=== PATIENT | male | born 1960 | race African-American/Black ===

== ENCOUNTER 2017-06-11 15:47 | Emergency (ER) | payer OTHER ==
[~2017-06-11 15:47] MED LIST: 1-ME1LIQ PO; BENZ100 PO; EXTR500C PO; GLUCTAB PO; LISI2.5T3 PO; NAPR250T57 PO; OSEL75 PO
[2017-06-11 15:49] VITALS: BP 161/96; PULSE 75; RESP 16; TEMP 98.2; O2SAT 97
[2017-06-11] MEDS ORDERED: SODIUM CHLOR 0.9% 1000 ML INJ 1,000 ML IV SCH (15:57)
--- NOTE | 2017-06-11 16:05 | PD ---
HPI Chief Complaint: Diabetic Time Seen by Provider: 15:57 Travel History International Travel<30 days: No Contact w/Intl Traveler<30days: No Traveled to known affect area: No History of Present Illness HPI This is a 57-year-old male with history of type 2 diabetes, hypertension who presents for evaluation of hyperglycemia. He used to be a patient of Dr. Lee at the [facility]. He has not been there in several months and he has subsequently ran out of his metformin 500 mg bid approximate 6 months ago. He has not been checking his blood sugar. He reports that he obtain a new glucometer recently and noted that his blood sugars been elevated in the 300 range. He has been attempting dietary changes in order to affect his blood sugar but he has had persistently high blood sugar as well as polyuria, polydipsia, blurred vision. He has no other complaints at this time. 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, SPINAL STENOSIS) Neurologic: Yes (NEUROPATHY, STROKE, SEIZURE DISORDER) Psychiatric: Yes Reproductive: No Respiratory: Yes Migraines: No Myocardial Infarction: No Radiation Therapy: No Renal Failure: No Seizures: Yes Sickle Cell Disease: No Sleep Apnea: Yes ("I WEAR OXYGEN MACHINE AT NIGHT FOR SLEEP APNEA") Thyroid Disease: No Ulcer: No Past Surgical History AICD: No Appendectomy: No Arteriovenous Shunt: No Cholecystectomy: No Insulin Pump: No Joint Replacement: No Pacemaker: No Other Surgery: No Social History Alcohol Use: Yes (OCC) Tobacco Use: No (quit x1 month) Substance Use: No (PATIENT DENIES) Allergies-Medications (Allergen,Severity, Reaction): Coded Allergies: lactose (Unverified Allergy, Severe, LACTOSE INTOLERANT, 06/11/17) Reported Meds & Prescriptions Reported Meds & Active Scripts Active Metformin (Metformin HCl) 500 Mg Tab 500 Mg PO BIDPC Tessalon Perles (Benzonatate) 100 Mg Cap 100 Mg PO TID PRN Tamiflu 75 mg (Oseltamivir Phosphate) 75 Mg Cap 1 Cap PO BID 5 Days Lisinopril 2.5 mg (Lisinopril) 2.5 Mg Tab 1 Tab PO DAILY 1-Methyl 2-Pyrrolidinone (1-Methyl 2-Pyrrolidone (Bulk)) 10 Mg Tab 1 Tab PO DAILY Glucophage XR 24 HR (Metformin HCl) 500 Mg Tab 500 Mg PO BID Reported Extra Strength Acetaminop (Acetaminophen) 500 Mg Cap 500 Mg PO BID PRN Naprosyn (Naproxen) 250 Mg Tab 250 Mg PO BID Review of Systems Except as stated in HPI: all other systems reviewed are Neg Physical Exam Narrative GENERAL: Well-developed well-nourished male in no acute distress SKIN: Warm and dry. HEAD: Atraumatic. Normocephalic. EYES: Pupils equal and round. No scleral icterus. No injection or drainage. ENT: No nasal bleeding or discharge. Mucous membranes pink and moist. NECK: Trachea midline. No JVD. CARDIOVASCULAR: Regular rate and rhythm. No murmur appreciated. RESPIRATORY: No accessory muscle use. Clear to auscultation. Breath sounds equal bilaterally. GASTROINTESTINAL: Abdomen soft, non-tender, nondistended. Hepatic and splenic margins not palpable. MUSCULOSKELETAL: No obvious deformities. No clubbing. No cyanosis. No edema. NEUROLOGICAL: Awake and alert. No obvious cranial nerve deficits. Motor grossly within normal limits. Normal speech. PSYCHIATRIC: Appropriate mood and affect; insight and judgment normal. Data Data Last Documented VS Vital Signs Date Time Temp Pulse Resp B/P (MAP) Pulse Ox O2 Delivery O2 Flow Rate FiO2 06/11/17 16:23 Room Air 06/11/17 15:49 98.2 75 16 161/96 (117) 97 Orders Orders Basic Metabolic Panel (Bmp) (06/11/17 15:57) Complete Blood Count With Diff (06/11/17 15:57) Urinalysis - C+S If Indicated (06/11/17 15:57) Iv Access Insert/Monitor (06/11/17 15:57) Sodium Chlor 0.9% 1000 Ml Inj (Ns 1000 M (06/11/17 15:57) Beta Hydroxybutyrate (Acetone) (06/11/17 15:57) Blood Glucose (06/11/17 16:05) Metformin (Glucophage) (06/11/17 17:15) Labs Laboratory Tests Test 06/11/17 16:20 White Blood Count 6.0 TH/MM3 Red Blood Count 5.20 MIL/MM3 Hemoglobin 14.3 GM/DL Hematocrit 42.8 % Mean Corpuscular Volume 82.4 FL Mean Corpuscular Hemoglobin 27.6 PG Mean Corpuscular Hemoglobin Concent 33.5 % Red Cell Distribution Width 13.3 % Platelet Count 204 TH/MM3 Mean Platelet Volume 8.4 FL Neutrophils (%) (Auto) 64.8 % Lymphocytes (%) (Auto) 23.6 % Monocytes (%) (Auto) 8.5 % Eosinophils (%) (Auto) 2.3 % Basophils (%) (Auto) 0.8 % Neutrophils # (Auto) 3.9 TH/MM3 Lymphocytes # (Auto) 1.4 TH/MM3 Monocytes # (Auto) 0.5 TH/MM3 Eosinophils # (Auto) 0.1 TH/MM3 Basophils # (Auto) 0.0 TH/MM3 CBC Comment DIFF FINAL Differential Comment Urine Color YELLOW Urine Turbidity CLEAR Urine pH 6.0 Urine Specific [place] 1.023 Urine Protein TRACE mg/dL Urine Glucose (UA) 1000 mg/dL Urine Ketones TRACE mg/dL Urine Occult Blood NEG Urine Nitrite NEG Urine Bilirubin NEG Urine Urobilinogen 2.0 MG/DL Urine Leukocyte Esterase NEG Urine WBC LESS THAN 1 /hpf Urine Mucus FEW /lpf Microscopic Urinalysis Comment CULT NOT INDICATED Blood Urea Nitrogen 13 MG/DL Creatinine 1.26 MG/DL Random Glucose 267 MG/DL Calcium Level 9.5 MG/DL Sodium Level 134 MEQ/L Potassium Level 3.8 MEQ/L Chloride Level 99 MEQ/L Carbon Dioxide Level 27.5 MEQ/L Anion Gap 8 MEQ/L Estimat Glomerular Filtration Rate 71 ML/MIN B-Hydroxybutyrate 0.15 MMOL/L MDM Medical Decision Making Medical Screen Exam Complete: Yes Emergency Medical Condition: Yes Medical Record Reviewed: Yes Differential Diagnosis Diabetes, hyperglycemia, DKA Narrative Course Laboratory is reassuring. Glucose is 267. He will be restarted on his metformin. Encouraged to establish care with a new primary care physician. Diagnosis Primary Impression: Diabetes Referrals: [facility] Additional Instructions: Medications prescribed. Follow-up with primary care physician. Return for any emergent medical conditions. Med/Other Pt SpecificInfo: Prescription(s) given Scripts Metformin (Metformin) 500 Mg Tab 500 MG PO BIDPC for Blood Sugar Management, #60 TAB 0 Refills Prov: Marichuy Buchanan MD 06/11/17 Disposition: 01 DISCHARGE HOME Condition: Stable Vijay Jasmine Jun 11, 2017 16:05
[2017-06-11 16:45] LABS: AUTOMATED NEUTROPHIL # 3.9 TH/MM3 (1.8-7.7); BASOPHIL % 0.8 % (0.0-2.0); EOSINOPHIL # 0.1 TH/MM3 (0-0.4); EOSINOPHIL % 2.3 % (0.0-4.0); HEMATOCRIT 42.8 % (39.0-51.0); HEMOGLOBIN 14.3 GM/DL (13.0-17.0); LYMPH % 23.6 % (9.0-44.0); LYMPHOCYTE # 1.4 TH/MM3 (1.0-4.8); MEAN CELL VOLUME 82.4 FL (80.0-100.0); MEAN CORPUSCULAR HEMOGLOBIN 27.6 PG (27.0-34.0); MEAN CORPUSCULAR HGB CONC 33.5 % (32.0-36.0); MEAN PLATELET VOLUME 8.4 FL (7.0-11.0); MONO % 8.5 % (0.0-8.0); MONOCYTE # 0.5 TH/MM3 (0-0.9); NEUT % 64.8 % (16.0-70.0); PLATELET COUNT 204 TH/MM3 (150-450); RED CELL DISTRIBUTION WIDTH 13.3 % (11.6-17.2)
[2017-06-11 16:52] LABS: BILIRUBIN, URINE NEG (NEG); BLOOD, URINE NEG (NEG); GLUCOSE,URINE 1000 mg/dL (NEG); KETONE, URINE TRACE mg/dL (NEG); MUCUS URINE FEW /lpf (OCC); NITRITE,URINE NEG (NEG); URINE COLOR YELLOW (YELLW/STRAW); URINE LEUKOCYTE ESTERASE NEG (NEG)
[2017-06-11 17:01] LABS: BICARBONATE 27.5 MEQ/L (21.0-32.0); CALCIUM 9.5 MG/DL (8.5-10.1); CREATININE 1.26 MG/DL (0.60-1.30)
[2017-06-11] MEDS ORDERED: METF500T PO (17:06)
[2017-06-11] MEDS ORDERED: metFORMIN HCL 500 MG TAB PO ONE (17:15)
== END 2017-06-11 18:02 | disposition home or self-care (01) ==
LOC: NEPE 15:47
DX: E11.65 Type 2 diabetes mellitus with hyperglycemia (principal); I10 Essential (primary) hypertension; F32.9 Major depressive disorder, single episode, unspecified; E78.00 Pure hypercholesterolemia, unspecified; J44.9 Chronic obstructive pulmonary disease, unspecified; E11.40 Type 2 diabetes mellitus with diabetic neuropathy, unspecified; G40.909 Epilepsy, unspecified, not intractable, without status epilepticus; G47.30 Sleep apnea, unspecified; Z86.73 Personal history of transient ischemic attack (TIA), and cerebral infarction without residual deficits
CPT/HCPCS: 80048; 81001; 82010; 85025; 99284; J7030

== ENCOUNTER 2018-02-02 08:04 | Observation (INO) ==
[2018-02-02] MEDS ORDERED: Sod Chloride 0.9% Inj 1,000 ML IV.SIG ONE (08:44)
[2018-02-02 09:16] LABS: Baso # (Auto) 0.1 th/mm3 (0.0-0.2); Baso % (Auto) 0.8 % (0.0-2.0); Eos # (Auto) 0.1 th/mm3 (0.0-0.4); Eos % (Auto) 0.8 % (0.0-4.0); Hematocrit 44.6 % (39.0-51.0); Hemoglobin 14.6 gm/dL (13.0-17.0); Lymph # (Auto) 1.3 th/mm3 (1.0-4.8); Lymph % (Auto) 18.3 % (9.0-44.0); Mean Corpuscular HGB Conc 32.7 % (32.0-36.0); Mean Corpuscular Hemoglobin 27.6 pg (27.0-34.0); Mean Corpuscular Volume 84.3 fL (80.0-100.0); Mean Platelet Volume 8.8 fL (7.0-11.0); Mono # (Auto) 0.6 th/mm3 (0.0-0.9); Mono % (Auto) 8.3 % (0.0-8.0); Neut # (Auto) 5.1 th/mm3 (1.8-7.7); Neut % (Auto) 71.8 % (16.0-70.0); Platelet Count 200 th/mm3 (150-450); Red Blood Count 5.29 mil/mm3 (4.50-5.90); Red Cell Distribution Width 13.9 % (11.6-17.2); White Blood Count 7.1 th/mm3 (4.0-11.0)
--- NOTE | 2018-02-02 09:22 | CT ---
EXAM DATE: 02/02/2018 9:17 AM EDT AGE/SEX: 57 years / Male INDICATIONS: Dizziness. CLINICAL DATA: This is the patient's initial encounter. Patient reports that signs and symptoms have been present for 1 day and indicates a pain score of 0/10. MEDICAL/SURGICAL HISTORY: Hypertension. None. RADIATION DOSE: 37.50 CTDI (mGy) COMPARISON: [facility], CT BRAIN W/O CONTRAST, 01/21/2011. . TECHNIQUE: CT of the head without contrast. Using automated exposure control and adjustment of the mA and/or kV according to patient size, radiation dose was kept as low as reasonably achievable to ob tain optimal diagnostic quality images. DICOM format image data is available electronically for revi ew and comparison. FINDINGS: Cerebrum: The ventricles are normal for age. No evidence of midline shift, mass lesion, hemorrhage or acute infarction. No extraaxial fluid collections are seen. Posterior Fossa: The cerebellum and brainstem are intact. The 4th ventricle is midline. The cerebe llopontine angle is unremarkable. Extracranial: The visualized portion of the orbits is intact. Skull: The calvaria is intact. No evidence of skull fracture. CONCLUSION: 1. Unremarkable and stable CT brain compared to the prior examination. . Electronically signed by: Albin Patino MD 02/02/2018 9:21 AM EDT
--- NOTE | 2018-02-02 09:23 | XR ---
EXAM DATE: 02/02/2018 9:09 AM EDT AGE/SEX: 57 years / Male INDICATIONS: Chest discomfort. CLINICAL DATA: This is the patient's initial encounter. Patient reports that signs and symptoms have been present for 1 day and indicates a pain score of 1/10. MEDICAL/SURGICAL HISTORY: None. None. [place] [facility] [place]. . FINDINGS: A single AP view of the chest demonstrates the lungs to be symmetrically aerated without evidence of mass, infiltrate or effusion. The cardiomediastinal contours are unremarkable. Osseous structures a re intact. CONCLUSION: No acute intrathoracic disease. Stable examination. Electronically signed by: Albin Patino MD 02/02/2018 9:22 AM EDT
--- NOTE | 2018-02-02 09:23 | XR ---
EXAM DATE: 02/02/2018 9:10 AM EDT AGE/SEX: 57 years / Male INDICATIONS: Low back pain. CLINICAL DATA: This is the patient's initial encounter. Patient reports that signs and symptoms have been present for 2 weeks and indicates a pain score of 8/10. MEDICAL/SURGICAL HISTORY: None. None. COMPARISON: No prior exams available for comparison. FINDINGS: The vertebral bodies are in normal alignment without evidence of compression deformity. Bone density is normal for age. Soft tissues are grossly intact. There is good alignment of the SI joints. CONCLUSION: Unremarkable plain films of the lumbar spine. Electronically signed by: Albin Patino MD 02/02/2018 9:21 AM EDT
[2018-02-02 10:28] LABS: Calcium 8.5 mg/dL (8.5-10.1); Potassium 4.1 meq/L (3.5-5.1)
--- NOTE | 2018-02-02 12:15 | ED ---
HPI General Chief Complaint: Dizziness Stated Complaint: High BP/weakness Time Seen by Provider: 02/02/18 08:44 History of Present Illness HPI Narrative: This is a 57-year-old male with a history of diabetes mellitus, hypertension, chronic back pain, who presents today with complaints of dizziness and left upper and lower extremity numbness. Patient denies any weakness. He states yesterday he started experiencing spasms in his hand. He states that when he woke up this morning he noticed that he was also having numbness of his leg and arm and face. He states that he has had this in the past however it has never lasted this long. He denies any weakness of his extremities. He denies any difficulty swallowing. He denies any numbness or tingling of his right upper or lower extremity. Patient does state that he has had neuropathy in the past when his blood sugars have been high. Patient also gives history that he recently had a steroid injection for his low back pain. Patient reports dizziness. He states worse when standing however he does have some when he sitting supine. No other complaints at time of examination. Related Data Allergies Allergy/AdvReac Type Severity Reaction Status Date / Time lactose Allergy Severe LACTOSE Unverified 06/11/17 16:32 INTOLERANT Review of Systems ROS: all other systems reviewed are negative Constitutional Denies chills and Denies fever(s) Eyes Reports system reviewed and no additional complaints, except as docu ENT Reports system reviewed and no additional complaints, except as docu Cardiovascular Denies chest pain, Denies diaphoresis, Denies edema and Denies dyspnea Respiratory Denies chest congestion, Denies cough and Denies dyspnea Gastrointestinal Denies abdominal pain, Denies nausea and Denies vomiting Genitourinary Reports system reviewed and no additional complaints, except as docu Musculoskeletal Reports back pain (Lumbar), Reports numbness (Left upper and left lower extremity) and Reports tingling Integumentary/Breasts Denies new lesions and Denies rash Neurologic Denies abnormal speech, Denies vertigo, Reports dizziness, Reports sensory deficit (Left sided face and left upper and left lower extremity numbness.) and Denies weakness Endocrine Denies polydipsia and Reports polyuria [facility] Social History Social History Second Hand Smoke Exposure: No Smoking Status: Former smoker Tobacco Type: Cigarettes How Often Do You Have a Drink Containing Alcohol: Never Recent Travel in [facility] within the Last 8 Weeks: No Recent Out of Country Travel within the Last 8 Weeks: No Immunization History Tetanus Immunization: <5 Years Exam Narrative Exam Narrative: GENERAL: Well-developed well-nourished male in no acute respiratory distress. SKIN: Focused skin assessment warm/dry. HEAD: Atraumatic. Normocephalic. EYES: No scleral icterus. No injection or drainage. ENT: No nasal bleeding or discharge. Mucous membranes pink and moist. NECK: Trachea midline. Supple. CARDIOVASCULAR: Regular rate and rhythm. No murmur appreciated. RESPIRATORY: No accessory muscle use. Clear to auscultation. Breath sounds equal bilaterally. GASTROINTESTINAL: Abdomen soft, non-tender, nondistended. Hepatic and splenic margins not palpable. MUSCULOSKELETAL: No obvious deformities. No clubbing. No cyanosis. No edema. NEUROLOGICAL: Awake and alert. Subjective decreased sensation to the left upper middle and lower face. Patient also reports decreased sensation to the left upper extremity and left lower extremity compared to the right. Normal sensation to the right upper and right lower extremity and face.. Motor grossly within normal limits. Normal speech. PSYCHIATRIC: Appropriate mood and affect; insight and judgment normal. Course Initial Documented Vital Signs Temperature 97.6 F 02/02/18 08:09 Pulse Rate 80 02/02/18 08:09 Respiratory Rate 16 02/02/18 08:09 Blood Pressure 130/75 02/02/18 08:09 Pulse Oximetry 99 02/02/18 08:09 Last Documented Vital Signs Temperature 97.6 F 02/02/18 08:09 Pulse Rate 72 02/02/18 11:40 Respiratory Rate 17 02/02/18 11:40 Blood Pressure 121/79 02/02/18 11:40 Pulse Oximetry 96 02/02/18 11:40 Medical Decision Making [facility] Narrative Medical decision making narrative: 57-year-old male with a history of diabetes mellitus, hypertension, presents today with complaints of numbness to the left face, left upper extremity, left lower extremity. Patient also reports dizziness. The patient states his blood pressure was high this morning when he woke up in the middle of the night. He states that when he checked it it was 100 diastolic. He states he called his primary care physician who instructed him to take his blood pressure medication. He states he took 2 of his lisinopril and 1 amlodipine. When he arrived here today, his blood pressure had normalized. The patient has subjective decreased sensation to his left side including his face. CT scan shows no evidence of acute intracranial abnormalities. Blood work reveals elevated blood sugar over 200. He is still symptomatic. There is a call out to the [facility] for possible observation admission and MRI. Patient's lumbar spine films show no evidence of abnormality. Medical Screen Exam Complete: Yes Emergency Medical Condition: Yes Lab Data Result diagrams: 02/02/18 08:00 02/02/18 08:00 Lab Results 02/02/18 02/02/18 02/02/18 Range/Units 08:00 08:00 12:30 WBC 7.1 (4.0-11.0) th/mm3 RBC 5.29 (4.50-5.90) mil/mm3 Hgb 14.6 (13.0-17.0) gm/dL Hct 44.6 (39.0-51.0) % MCV 84.3 (80.0-100.0) fL MCH 27.6 (27.0-34.0) pg MCHC 32.7 (32.0-36.0) % RDW 13.9 (11.6-17.2) % Plt Count 200 (150-450) th/mm3 MPV 8.8 (7.0-11.0) fL Neut % (Auto) 71.8 H (16.0-70.0) % Lymph % (Auto) 18.3 (9.0-44.0) % [place]k % (Auto) 8.3 H (0.0-8.0) % Eos % (Auto) 0.8 (0.0-4.0) % Baso % (Auto) 0.8 (0.0-2.0) % Neut # (Auto) 5.1 (1.8-7.7) th/mm3 Lymph # (Auto) 1.3 (1.0-4.8) th/mm3 [place]k # (Auto) 0.6 (0.0-0.9) th/mm3 Eos # (Auto) 0.1 (0.0-0.4) th/mm3 Baso # (Auto) 0.1 (0.0-0.2) th/mm3 WBC Differential . Differential Comment Auto diff final Sodium 138 (136-145) meq/L Potassium 4.1 (3.5-5.1) meq/L Chloride 102 (98-107) meq/L Carbon Dioxide 28.0 (21.0-32.0) meq/L Anion Gap 8 (5-15) meq/L BUN 17 (7-18) mg/dL Creatinine 1.10 (0.60-1.30) mg/dL Estimated GFR 84 L (>89) mL/min Random Glucose 240 H (74-106) mg/dL Calcium 8.5 (8.5-10.1) mg/dL Urine Color Yellow (Yellw/Straw) Urine Clarity Clear (Clear) Urine pH 5.0 (5.0-8.5) Ur Specific [place] 1.025 (1.002-1.035) Urine Protein 100 H (Neg-Trace) mg/dL Urine Glucose (UA) 500 or greater (Negative) mg/dL Urine Ketones Negative (Negative) mg/dL Urine Occult Blood Negative (Negative) Urine Nitrate Negative (Negative) Urine Bilirubin Negative (Negative) Urine Urobilinogen Less than 2 (Less than 2) mg/dL Ur Leukocyte Esterase Negative (Negative) Urine RBC 1 (0-3) /hpf Urine WBC Less than 1 (0-5) /hpf Urine Bacteria Rare H (None) /hpf Micro UA Comment Culture not ind Ur Microscopic Review Not Reportable Urine Culture Comments Culture not ind Imaging Data Radiologist's impression: Chest X-Ray 02/02/18 08:44 CONCLUSION: No acute intrathoracic disease. Stable examination. Head CT 02/02/18 08:44 CONCLUSION: 1. Unremarkable and stable CT brain compared to the prior examination. . Lumbar Spine X-Ray 02/02/18 08:44 CONCLUSION: Unremarkable plain films of the lumbar spine. Discharge Plan Discharge Disposition Patient Disposition: 30 Still Patient Discharge Details Diagnosis: Left sided numbness, Hyperglycemia, Hypertension Physicians Team ED Provider: Mikael Presley Primary Care Provider: No Carey Discharge Interventions Interventions: Vital Signs Last Done: 02/02/18 11:40 Status ED Status: With Doctor
[2018-02-02 13:52] LABS: Bacteria,Urine Rare /hpf; Bilirubin,Urine Negative (Negative); Clarity,Urine Clear (Clear); Color,Urine Yellow (Yellw/Straw); Glucose,Urine (UA) 500 or Greater mg/dL (Negative); Leukocyte Esterase,Urine Negative (Negative); Nitrite,Urine Negative (Negative); Specific Gravity,Urine 1.025 (1.002-1.035)
--- NOTE | 2018-02-02 15:57 | US ---
EXAM DATE: 02/02/2018 3:53 PM EDT AGE/SEX: 57 years / Male INDICATIONS: Transient ischemic attack. CLINICAL DATA: This is the patient's initial encounter. Patient reports that signs and symptoms have been present for 1 day and indicates a pain score of 0/10. MEDICAL/SURGICAL HISTORY: . Transient ischemic attack. None. COMPARISON: No prior exams available for comparison. VELOCITY PARAMETERS: ICA/CCA Ratio: Right 0.8 , Left 0.8 ICA: Right 85.7 cm/sec, Left 86.6 cm/sec CCA: Right 108 cm/sec, Left 108 cm/sec ECA: Right 98.8 cm/sec, Left 96.8 cm/sec Vertebral: Right 54.1 cm/sec antegrade, Left 34.8 cm/sec antegrade FINDINGS: Right Carotid: There is some mild plaquing at the bifurcation.The waveforms are within normal limits . Left Carotid: There is some mild plaquing at the bifurcation. The waveforms are within normal limits . Other: None. CONCLUSION: 1. Mild plaquing at both carotid bifurcations. 2. Otherwise, unremarkable carotid ultrasound for patient's age. No focal high-grade or hemodynamica lly significant stenosis is demonstrated. Electronically signed by: Albin Patino MD 02/02/2018 3:56 PM EDT
--- NOTE | 2018-02-02 16:26 | ECG ---
Date Performed: 02/02/2018 Time Performed: 08:24:37 PTAGE: 57 years EKG: Sinus rhythm NORMAL ECG Since the PREVIOUS TRACING , no significant change noted PREVIOUS TRACIN08/10/2014 05.25 DOCTOR: Nader Carey Interpretating Date/Time 02/02/2018 16:26:02
[2018-02-02] MEDS: Heparin - SQ 10,000 UNITS/ML Vial SQ SCH (16:58)
[2018-02-02] MEDS: Aspirin 325 MG Tablet PO SCH (16:58)
--- NOTE | 2018-02-02 17:58 | MR ---
EXAM DATE: 02/02/2018 5:51 PM EDT AGE/SEX: 57 years / Male INDICATIONS: CVA. Left sided weakness. CLINICAL DATA: This is the patient's initial encounter. Patient reports that signs and symptoms have been present for 1 day and indicates a pain score of 0/10. MEDICAL/SURGICAL HISTORY: Hypertension. Diabetes mellitus type II. None. COMPARISON: No prior exams available for comparison. TECHNIQUE: 3D [id number] MRA was performed. Source images, multiplanar STS MIP, and 3D volum e MIP reconstructions were reviewed. FINDINGS: There is excellent visualization of the major intracranial arteries out to the second-order branch ve ssels. There is no evidence for aneurysm, vessel stenosis, and no evidence for vascular malformation . There is some questionable mild narrowing involving the basilar artery. The posterior cerebral vess els are patent. There are patent bilateral posterior communicating arteries. CONCLUSION: 1. Questionable mild narrowing involving the basilar artery. This may be an artifact. If clinically indicated, CTA of the carotids could be performed. 2. Otherwise, unremarkable MRA of the head. Electronically signed by: Albin Patino MD 02/02/2018 5:56 PM EDT
--- NOTE | 2018-02-02 18:05 | MR ---
EXAM DATE: 02/02/2018 5:54 PM EDT AGE/SEX: 57 years / Male INDICATIONS: CVA. Left sided weakness. CLINICAL DATA: This is the patient's initial encounter. Patient reports that signs and symptoms have been present for 1 day and indicates a pain score of 0/10. MEDICAL/SURGICAL HISTORY: Hypertension. Diabetes mellitus type II. None. COMPARISON: No prior exams available for comparison. TECHNIQUE: Multiplanar, multisequence examination of the brain was performed without contrast. FINDINGS: Cerebrum: The ventricles are normal for age. No evidence of midline shift, mass lesion, hemorrhage or acute infarction. No extraaxial fluid collections are seen. The pituitary gland and suprasellar cistern are normal in configuration. White Matter: There is moderate chronic white matter changes bilaterally. Posterior Fossa: The cerebellum and brainstem are intact. The 4th ventricle is midline. The cerebel lopontine angle is unremarkable. The cerebellar tonsils are normal in position. Diffusion Imaging: No focal areas of restricted diffusion are seen. No evidence of acute infarction . Extracranial: The visualized portions of the orbits and paranasal sinuses are unremarkable. CONCLUSION: 1. No evidence to suggest an acute infarction. 2. Moderate nonspecific chronic white matter changes are seen bilaterally. This can be seen with isc hemic demyelinization. However, any demyelinating process could present in this fashion. This needs t o be correlated with patient's physical, clinical exam and laboratory values. Electronically signed by: Albin Patino MD 02/02/2018 6:04 PM EDT
--- NOTE | 2018-02-02 19:07 | P.HPFP ---
History of Present Illness Service: Pt is a 57 yr old male with PMH of uncontrolled diabetes, HTN, hx of TIA's, and cervical disc bulging/ stenosis, whom presented to the ED for evaluation of new onset L side numbness on his L arm, and face, as well as tingling/ pain on his L leg. He states this episode started early this morning when he woke up not feeling well. He took his BP and realized it was very high, called his PCP and was advised to take his BP medications. He states he also measured his sugar and found it to be 289, which it about the usual for him. He then took Metformin and measured his sugar again, and was 310. Pt states at that moment he started realizing his Left arm was numb, he felt the numbness from the shoulder down, but no tingling or pain. He has a chronic history of peripheral neuropathy that mainly affects his hands. He sates he also started feeling that his toes were tingling on his L foot and when he walked he could feel pain on the L side of his leg, more like a "weakness pain". Pt states he has a history of a "diabetic stroke" in the past, he is unable to provide a clear history. He states he was in a very bad shape and that he needed rehab for a long time, he was unable to talk and finish sentences, and he was unable to walk as well. Pt has hard time answering yes or no questions or providing a direct answer. His speech is somewhat tangential. Allergies: NKA (lactose is not an allergy) Medications: Amlodipine 5mg, atorvatatin 40mg, lisinopril 2.5mg, metformin 500mg , and naproxen 500mg. PMH: HTN, uncontrolled diabetes, hx of TIA, questionable hx of stroke vs DKA vs HHS, hx of depression PSx: none FH: Diabetes runs on his dad side of the family. He has a brother and father with hx of pancreatic cancer. Social Hx: Lives alone, no children. Denies smoking, drinking or recreational drug use. 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 <Coco Riojas V - 02/02/18 19:46> Primary Care Physician: No Carey MD, R3 <Enriqueta Ervin - 02/03/18 17:19> No Carey MD, R3 <Omid JohnsonCheli 02/02/18 19:07> Chief Complaint: numbness of LUE and tingling of L toes <Omid Johnson,Cheli 02/02/18 19:07> - Diagnosis (1) Left sided numbness (2) Diabetes mellitus (3) Hypercholesteremia (4) Hypertension (5) Nutrition, metabolism, and development symptoms (6) DVT prophylaxis <Enriqueta Ervin - 02/03/18 17:19> (1) Left sided numbness (2) Diabetes mellitus (3) Hypercholesteremia (4) Hypertension (5) Nutrition, metabolism, and development symptoms (6) DVT prophylaxis <Omid JohnsonCheli 02/02/18 19:46> Review of Systems Constitutional: Reports headache(s), Denies chills, Denies fever(s), Denies night sweats <Omid Johnson,Cheli - 02/02/18 19:46> Eyes: Reports double vision (due to cataracts) <Omid Johnson,Cheli 19:46> Ears, Nose, Mouth, and Throat: Reports sore throat, Denies dizziness <Omid Johnson,Cheli 02/02/18 19:46> Cardiovascular: Denies chest pain, Denies lightheadedness, Denies shortness of breath <Omid Johnson,Cheli 02/02/18 19:46> Respiratory: Denies chest congestion, Denies cough, Denies shortness of breath <Omid Johnson,Cheli - 02/02/18 19:46> Gastrointestinal: Reports loose stools, Denies abdominal pain, Denies constipation, Denies nausea, Denies vomiting <Omid Johnson,Cheli 19:46> Genitourinary: Denies difficulty urinating, Denies painful urination, Denies urinary hesitancy <Omid JohnsonCheli 02/02/18 19:46> Musculoskeletal: Reports joint pain, Reports numbness, Reports tingling, Denies abnormal walking <Omid JohnsonCheli - 02/02/18 19:46> Neurologic: Reports tingling, Reports tingling/numbness/burning sensations, Reports weakness <Omid JohnsonCheli 02/02/18 19:46> [facility] - History History Provided By: Patient <Coco Riojas V 02/02/18 19:07> - Medical History Medical History: Medical History (Last Updated 02/02/18 @ 16:38 by Catie Martinez RN) Chronic back pain Diabetes Hypercholesteremia Hypertension Spinal stenosis <Enriqueta Ervin - 02/03/18 17:19> Medical History (Last Updated 02/02/18 @ 16:38 by Catie Martinez RN) Chronic back pain Diabetes Hypercholesteremia Hypertension Spinal stenosis <Coco Riojas V 02/02/18 19:07> - Tobacco History Second Hand Smoke Exposure: No <Coco Riojas V 02/02/18 19:07> Tobacco Use In Past 30 Days: No <Coco Riojas V 02/02/18 19:07> Smoking Status: Former smoker <Coco Riojas V 02/02/18 19:07> Tobacco Type: Cigarettes <Coco Riojas V 02/02/18 19:07> - Alcohol History How Often Do You Have a Drink Containing Alcohol: Never <Coco Riojas V 02/02/18 19:07> - Substance Use History Substance History: No History of Abuse <Coco Riojas V 02/02/18 19:07 > - Travel History Recent Travel in the [facility] Within the Last 8 Weeks: No <Coco Riojas V 02/02/18 19:07> Recent Travel Out of the Country Within the Last 8 Weeks: No <Coco Riojas V 02/02/18 19:07> - Immunization History Tetanus Immunization: <5 Years <Coco Riojas V 02/02/18 19:07> Medications and Allergies Allergies Allergy/AdvReac Type Severity Reaction Status Date / Time lactose Allergy Severe LACTOSE Unverified 06/11/17 16:32 INTOLERANT <ArcadioEnriqueta - 02/03/18 17:19> Home Medications Medication Instructions Recorded Confirmed Type Lactobacillus acidoph-pectin 1 cap PO TID 02/02/18 02/02/18 History [Acidophilus-Pectin] amlodipine 5 mg PO DAILY 02/02/18 02/02/18 History atorvastatin 40 mg PO DAILY 02/02/18 02/02/18 History lisinopril 2.5 mg PO DAILY 02/02/18 02/02/18 History metformin 500 mg PO BID 02/02/18 02/02/18 History <Enriqueta Ervin - 02/03/18 17:19> Active Medications: Active Medications Amlodipine Besylate (Norvasc) 5 mg PO DAILY [facility] Aspirin (Aspirin) 325 mg PO DAILY [facility] Last Admin: 02/02/18 16:58 Dose: 325 mg Atorvastatin Calcium (Lipitor) 40 mg PO DAILY [facility] Heparin Sodium (Porcine) (Heparin Inj) 5,000 units SQ Q12H [facility] Last Admin: 02/02/18 16:58 Dose: 5,000 units Lactobacillus Acidophilus (Lactinex Pkt) 1 gm PO Q8HR [facility] Lisinopril (Prinivil) 2.5 mg PO DAILY [facility] Metformin HCl (Glucophage) 500 mg PO BID [facility] Sodium Chloride (Ns Flush) 2 ml IV.FLUSH BID [facility] Sodium Chloride (Ns Flush) 2 ml IV.FLUSH UNSCH PRN PRN Reason: FLUSH AFTER USING IV ACCESS <Coco Riojas V - 02/02/18 19:07> Exam Vital signs: Vital Signs 02/02/18 19:52 02/02/18 20:00 02/03/18 00:00 Temperature 98.6 F 97.5 F L Pulse Rate 70 69 68 Respiratory Rate 18 18 Blood Pressure 117/72 115/67 Pulse Oximetry 99 100 02/03/18 03:28 02/03/18 04:54 02/03/18 07:57 Temperature 98.4 F 98.6 F Pulse Rate 68 64 70 Respiratory Rate 18 18 Blood Pressure 119/77 123/76 Pulse Oximetry 100 99 02/03/18 09:00 02/03/18 12:00 Temperature 99.1 F Pulse Rate 68 82 Respiratory Rate 18 Blood Pressure 145/74 H Pulse Oximetry 100 Intake & Output 02/02/18 02/03/18 02/03/18 18:59 06:59 18:59 Intake Total 1520 / 1520 Balance 1520 / 1520 Weight 75.5 kg Intake: IV 1000 / 1000 Oral 520 / 520 Other: Date of Last Bowel Movement 02/01/18 02/03/18 Weight On Admission 75.5 kg <Enriqueta Ervin - 02/03/18 17:19> Vital Signs 02/02/18 08:09 02/02/18 08:28 02/02/18 11:40 Temperature 97.6 F Pulse Rate 80 81 72 Respiratory Rate 16 17 17 Blood Pressure 130/75 121/79 Pulse Oximetry 99 100 96 02/02/18 15:11 02/02/18 16:00 Temperature 98.8 F Pulse Rate 70 71 Respiratory Rate 17 16 Blood Pressure 127/85 125/85 Pulse Oximetry 96 100 Intake & Output 02/02/18 02/02/18 02/03/18 06:59 18:59 06:59 Intake Total 1520 / 1520 Balance 1520 / 1520 Weight 75.5 kg Intake: IV 1000 / 1000 Oral 520 / 520 Other: Date of Last Bowel Movement 02/01/18 Weight On Admission 75.5 kg <OmidCoco Delong V - 02/02/18 19:07> Narrative: GENERAL: Well-nourished, well-developed patient. In NAD,resting comfortably SKIN: Warm and dry. HEAD: Normocephalic and atraumatic. EYES: No scleral icterus. No injection or drainage. small pupils, reactive to light. EOM intact ENT: No nasal drainage noted. Mucous membranes pink. Airway patent. NECK: Supple, trachea midline. No JVD. CARDIOVASCULAR: Regular rate and rhythm without murmurs, gallops, or rubs. RESPIRATORY: Breath sounds equal bilaterally. No accessory muscle use. ABDOMEN/GI: Abdomen soft, non-tender, bowel sounds present, no rebound, no guarding EXTREMITIES: No cyanosis or edema. BACK: Nontender without obvious deformity. No CVA tenderness. tenderness to palpation over cervical vertebrae NEUROLOGICAL: Awake and alert. Five out of 5 muscle strength in most muscle groups. Minimal decreased strength while resisting L leg against gravity. Normal speech. Reports of decreased sensation on L middle and lower face, L arm and L leg. Normal finger to nose. CN I-XII grossly intact except for sensation of L face. <Omid JohnsonCoco V - 02/02/18 19:46> Results - Labs Result diagrams: 02/03/18 02:42 02/03/18 02:42 <Enriqueta Ervin - 02/03/18 17:19> Abnormal lab results 02/02/18 02/03/18 02/03/18 Range/Units 21:47 02:42 07:24 POC Glucose 187 H 184 H (68-110) mg/dl Random Glucose 190 H (74-106) mg/dL Alkaline Phosphatase 129 H (45-117) U/L 02/03/18 Range/Units 11:44 POC Glucose 172 H (68-110) mg/dl Random Glucose (74-106) mg/dL Alkaline Phosphatase (45-117) U/L Short CBC 02/03/18 Range/Units 02:42 WBC 7.0 (4.0-11.0) th/mm3 Hgb 14.3 (13.0-17.0) gm/dL Hct 43.2 (39.0-51.0) % Plt Count 188 (150-450) th/mm3 BMP 02/03/18 02:42 Sodium 136 Potassium 4.4 Chloride 100 Carbon Dioxide 27.7 BUN 17 Creatinine 1.02 Calcium 9.3 D Liver Function 02/03/18 Range/Units 02:42 Total Bilirubin 0.4 (0.2-1.0) mg/dL AST 19 (15-37) U/L ALT 35 (12-78) U/L Alkaline Phosphatase 129 H (45-117) U/L Albumin 4.1 (3.4-5.0) g/dL <Enriqueta Ervin - 02/03/18 17:19> Abnormal lab results 02/02/18 02/02/18 02/02/18 Range/Units 08:00 08:00 12:30 Neut % (Auto) 71.8 H (16.0-70.0) % [place] % (Auto) 8.3 H (0.0-8.0) % Estimated GFR 84 L (>89) mL/min POC Glucose (68-110) mg/dl Random Glucose 240 H (74-106) mg/dL Troponin I (0.02-0.05) ng/mL Urine Protein 100 H (Neg-Trace) mg/dL Urine Bacteria Rare H (None) /hpf 02/02/18 02/02/18 Range/Units 15:45 17:11 Neut % (Auto) (16.0-70.0) % Peach % (Auto) (0.0-8.0) % Estimated GFR (>89) mL/min POC Glucose 201 H (68-110) mg/dl Random Glucose (74-106) mg/dL Troponin I Less than 0.02 L (0.02-0.05) ng/mL Urine Protein (Neg-Trace) mg/dL Urine Bacteria (None) /hpf Short CBC 02/02/18 Range/Units 08:00 WBC 7.1 (4.0-11.0) th/mm3 Hgb 14.6 (13.0-17.0) gm/dL Hct 44.6 (39.0-51.0) % Plt Count 200 (150-450) th/mm3 BMP 02/02/18 08:00 Sodium 138 Potassium 4.1 Chloride 102 Carbon Dioxide 28.0 BUN 17 Creatinine 1.10 Calcium 8.5 Cardiac Enzymes 02/02/18 Range/Units 15:45 Troponin I Less than 0.02 L (0.02-0.05) ng/mL Urine 02/02/18 Range/Units 12:30 Urine Color Yellow (Yellw/Straw) Urine Clarity Clear (Clear) Urine pH 5.0 (5.0-8.5) Ur Specific [place] 1.025 (1.002-1.035) Urine Protein 100 H (Neg-Trace) mg/dL Urine Glucose (UA) 500 or greater (Negative) mg/dL <Coco Riojas V - 02/02/18 19:07> - Imaging Impressions Head MRI 02/02/18 00:00 CONCLUSION: 1. No evidence to suggest an acute infarction. 2. Moderate nonspecific chronic white matter changes are seen bilaterally. This can be seen with ischemic demyelinization. However, any demyelinating process could present in this fashion. This needs to be correlated with patient' s physical, clinical exam and laboratory values. Head MRA 02/02/18 00:00 CONCLUSION: 1. Questionable mild narrowing involving the basilar artery. This may be an artifact. If clinically indicated, CTA of the carotids could be performed. 2. Otherwise, unremarkable MRA of the head. <Enriqueta Ervin - 02/03/18 17:19> Impressions Carotid Doppler Study 02/02/18 00:00 CONCLUSION: 1. Mild plaquing at both carotid bifurcations. 2. Otherwise, unremarkable carotid ultrasound for patient's age. No focal high- grade or hemodynamically significant stenosis is demonstrated. Head MRI 02/02/18 00:00 CONCLUSION: 1. No evidence to suggest an acute infarction. 2. Moderate nonspecific chronic white matter changes are seen bilaterally. This can be seen with ischemic demyelinization. However, any demyelinating process could present in this fashion. This needs to be correlated with patient' s physical, clinical exam and laboratory values. Head MRA 02/02/18 00:00 CONCLUSION: 1. Questionable mild narrowing involving the basilar artery. This may be an artifact. If clinically indicated, CTA of the carotids could be performed. 2. Otherwise, unremarkable MRA of the head. Chest X-Ray 02/02/18 08:44 CONCLUSION: No acute intrathoracic disease. Stable examination. Head CT 02/02/18 08:44 CONCLUSION: 1. Unremarkable and stable CT brain compared to the prior examination. . Lumbar Spine X-Ray 02/02/18 08:44 CONCLUSION: Unremarkable plain films of the lumbar spine. <Coco Riojas V - 02/02/18 19:07> Caprini VTE Risk Assessment Caprini VTE Risk Assessment: Moderate/High Risk (score >= 2) <Coco Riojas V - 02/02/18 19:46> Caprini Risk Assessment Model: Point Value = 1 Point Value = 2 Point Value = 3 Point Value = 5 Age 41-60 Minor surgery BMI > 25 kg/m2 Swollen legs Varicose veins or History of unexplained or recurrent spontaneous Oral contraceptives or hormone replacement Sepsis (< 1 month) Serious lung disease, including pneumonia (< 1 month) Abnormal pulmonary function Acute myocardial infarction Congestive heart failure (< 1 month) History of inflammatory bowel disease Medical patient at bed rest Age 61-74 Arthroscopic surgery Major open surgery (> 45 min) Laparoscopic surgery (> 45 min) Malignancy Confined to bed (> 72 hours) Immobilizing plaster cast Central venous access Age >= 75 History of VTE Family history of VTE Factor V Leiden Prothrombin [id number] Lupus anticoagulant Anticardiolipin antibodies Elevated serum homocysteine Heparin-induced thrombocytopenia Other congenital or acquired thrombophilia Stroke (< 1 month) Elective arthroplasty Hip, pelvis, or leg fracture Acute spinal cord injury (< 1 month) <Enriqueta Ervin - 02/03/18 17:19> Point Value = 1 Point Value = 2 Point Value = 3 Point Value = 5 Age 41-60 Minor surgery BMI > 25 kg/m2 Swollen legs Varicose veins or History of unexplained or recurrent spontaneous Oral contraceptives or hormone replacement Sepsis (< 1 month) Serious lung disease, including pneumonia (< 1 month) Abnormal pulmonary function Acute myocardial infarction Congestive heart failure (< 1 month) History of inflammatory bowel disease Medical patient at bed rest Age 61-74 Arthroscopic surgery Major open surgery (> 45 min) Laparoscopic surgery (> 45 min) Malignancy Confined to bed (> 72 hours) Immobilizing plaster cast Central venous access Age >= 75 History of VTE Family history of VTE Factor V Leiden Prothrombin [id number] Lupus anticoagulant Anticardiolipin antibodies Elevated serum homocysteine Heparin-induced thrombocytopenia Other congenital or acquired thrombophilia Stroke (< 1 month) Elective arthroplasty Hip, pelvis, or leg fracture Acute spinal cord injury (< 1 month) <Coco Riojas V - 02/02/18 19:07> Prophylaxis Regimen: Total Risk Factor Score Risk Level Prophylaxis Regimen 0-1 Low Early ambulation 2 Moderate Order ONE of the following: *Sequential Compression Device (SCD) *Heparin 5000 units SQ BID 3-4 Higher Order ONE of the following medications: *Heparin 5000 units SQ TID *Enoxaparin/Lovenox 40 mg SQ daily (WT < 150 kg, CrCl > 30 mL/min) *Enoxaparin/Lovenox 30 mg SQ daily (WT < 150 kg, CrCl > 10-29 mL/min) *Enoxaparin/Lovenox 30 mg SQ BID (WT < 150 kg, CrCl > 30 mL/min) AND/OR *Sequential Compression Device (SCD) 5 or more Highest Order ONE of the following medications: *Heparin 5000 units SQ TID (Preferred with Epidurals) *Enoxaparin/Lovenox 40 mg SQ daily (WT < 150 kg, CrCl > 30 mL/min) *Enoxaparin/Lovenox 30 mg SQ daily (WT < 150 kg, CrCl > 10-29 mL/min) *Enoxaparin/Lovenox 30 mg SQ BID (WT < 150 kg, CrCl > 30 mL/min) AND *Sequential Compression Device (SCD) <Enriqueta Ervin - 02/03/18 17:19> Total Risk Factor Score Risk Level Prophylaxis Regimen 0-1 Low Early ambulation 2 Moderate Order ONE of the following: *Sequential Compression Device (SCD) *Heparin 5000 units SQ BID 3-4 Higher Order ONE of the following medications: *Heparin 5000 units SQ TID *Enoxaparin/Lovenox 40 mg SQ daily (WT < 150 kg, CrCl > 30 mL/min) *Enoxaparin/Lovenox 30 mg SQ daily (WT < 150 kg, CrCl > 10-29 mL/min) *Enoxaparin/Lovenox 30 mg SQ BID (WT < 150 kg, CrCl > 30 mL/min) AND/OR *Sequential Compression Device (SCD) 5 or more Highest Order ONE of the following medications: *Heparin 5000 units SQ TID (Preferred with Epidurals) *Enoxaparin/Lovenox 40 mg SQ daily (WT < 150 kg, CrCl > 30 mL/min) *Enoxaparin/Lovenox 30 mg SQ daily (WT < 150 kg, CrCl > 10-29 mL/min) *Enoxaparin/Lovenox 30 mg SQ BID (WT < 150 kg, CrCl > 30 mL/min) AND *Sequential Compression Device (SCD) <Coco Riojas V - 02/02/18 19:07> Assessment and Plan - Assessment (1) Left sided numbness Code(s): R20.0 - Anesthesia of skin Status: Acute (2) Diabetes mellitus Code(s): E11.9 - Type 2 diabetes mellitus without complications Status: Chronic (3) Hypercholesteremia Code(s): E78.00 - Pure hypercholesterolemia, unspecified Status: Chronic (4) Hypertension Code(s): I10 - Essential (primary) hypertension Status: Chronic (5) Nutrition, metabolism, and development symptoms Code(s): R63.8 - Other symptoms and signs concerning food and fluid intake Status: Acute (6) DVT prophylaxis Status: Acute <Enriqueta Ervin - 02/03/18 17:19> (1) Left sided numbness Code(s): R20.0 - Anesthesia of skin Status: Acute Plan: Pt presenting to ED with complains of L side numbness of his LUE and tingling of his toes on L foot. Also complaining of decreased sensation of L face. He has a questionable history of past TIA's vs DKA vs HHS vs Stroke in the past, with apparently significant complications that resolved over time. Distribution of symptoms is hard to localize to one area or diagnosis. DDx including but not limited to: TIA vs nerve entrapment (with hx of bulging cervical disc) vs worsen chronic polyneuropathy. pt placed on observation - MRI and MRA of brain -Carotid US - Troponin x1 -Aspirin 325mg daily - PT evaluation - Will consider an Echocardiogram tomorrow pending MRI/MRA results. (2) Diabetes mellitus Code(s): E11.9 - Type 2 diabetes mellitus without complications Status: Chronic Plan: Pt with uncontrolled DM, with fasting sugars on 200's. States his last HbA1c was around 9. - Low dose insulin SS - Continue metformin 500mg qday (3) Hypercholesteremia Code(s): E78.00 - Pure hypercholesterolemia, unspecified Status: Chronic Plan: Chronic. Will continue home medication - Atorvastatin 40mg PO daily (4) Hypertension Code(s): I10 - Essential (primary) hypertension Status: Chronic Plan: Chronic. Normalized since coming to the hospital. Will continue home medication - Amlodipine 5mg q day - Lisinopril 2.5 po daily (5) Nutrition, metabolism, and development symptoms Code(s): R63.8 - Other symptoms and signs concerning food and fluid intake Status: Acute Plan: Diet: cardiac and diabetic Fluids: PO intake Pain: none indicated Electrolytes: monitor and replace as needed (6) DVT prophylaxis Status: Acute Plan: Heparin 5,000 U q12hrs plus SCD's bilateral <Coco Riojas V - 02/02/18 19:46> - Assessment and Plan 57 yr old male with new onset L side numbness and tingling with not defined distribution. Questionable history of TIA vs Stroke in the past, requiring rehabilitation. Due to this acute presentation but not worsening of symptoms, will work up for TIA. Due to presentation on the L side arm with numbness will also order a troponin level. At this moment pt seems to be clinically stable and we will monitor his progress. Pt seen and discussed with Dr. Ervin <Coco Riojas V - 02/02/18 19:46> - Attending Attestation Patient seen, examined, and discussed with Dr Omid Johnson on day of documentation. I agree with assessment and management as documented and discussed with me. Pt with acute onset of neurologic symptoms. Work up as ordered by resident team. <Enriqueta Ervin - 02/03/18 17:19> H&P: Quality - VTE Deep Vein Thrombosis/Pulmonary Embolism Present on Admission: No <Coco Riojas V - 02/02/18 19:07> <Coco Riojas V - Last Filed: 02/02/18 19:46> (2) Diabetes mellitus Qualifiers: Diabetes mellitus type: type 2 Diabetes mellitus complication detail: with polyneuropathy (4) Hypertension Qualifiers: Hypertension type: unspecified Qualified Code(s): I10 - Essential (primary) hypertension <Elsa Ervine - Last Filed: 02/03/18 17:19> (2) Diabetes mellitus Qualifiers: Diabetes mellitus type: type 2 Diabetes mellitus complication detail: with polyneuropathy (4) Hypertension Qualifiers: Hypertension type: unspecified Qualified Code(s): I10 - Essential (primary) hypertension <Coco Riojas V - Last Filed: 02/02/18 19:46> (2) Diabetes mellitus Qualifiers: Diabetes mellitus type: type 2 Diabetes mellitus complication detail: with polyneuropathy (4) Hypertension Qualifiers: Hypertension type: unspecified Qualified Code(s): I10 - Essential (primary) hypertension <Elsa Ervine - Last Filed: 02/03/18 17:19> (2) Diabetes mellitus Qualifiers: Diabetes mellitus type: type 2 Diabetes mellitus complication detail: with polyneuropathy (4) Hypertension Qualifiers: Hypertension type: unspecified Qualified Code(s): I10 - Essential (primary) hypertension
[2018-02-02 19:25] LABS: Amphetamine Screen,Urine Neg (Neg); Barbiturate Screen,Urine Neg (Neg); Cannabinoid Screen,Urine Neg (Neg); Cocaine Screen,Urine Neg (Neg)
[2018-02-02] MEDS ORDERED: Dextrose 50% in Water 50 ML Vial IV.PUSH PRN (19:36)
[2018-02-02 19:38] LABS: Opiate Screen,Urine Neg (Neg)
[2018-02-02 19:55] VITALS: RESP 18
[2018-02-02] MEDS: Insulin NovoLOG Aspart Correctional Sugar Inj SQ SCH (22:36)
[2018-02-03] MEDS: Heparin - SQ 10,000 UNITS/ML Vial SQ SCH (03:31)
[2018-02-03 04:21] LABS: Hematocrit 43.2 % (39.0-51.0); Hemoglobin 14.3 gm/dL (13.0-17.0); Mean Corpuscular HGB Conc 33.1 % (32.0-36.0); Mean Corpuscular Hemoglobin 27.8 pg (27.0-34.0); Mean Corpuscular Volume 83.9 fL (80.0-100.0); Mean Platelet Volume 8.5 fL (7.0-11.0); Platelet Count 188 th/mm3 (150-450); Red Blood Count 5.16 mil/mm3 (4.50-5.90); Red Cell Distribution Width 13.4 % (11.6-17.2)
[2018-02-03 04:51] LABS: Alanine Aminotransferase 35 U/L (12-78); Albumin 4.1 g/dL (3.4-5.0); Alkaline Phosphatase 129 U/L (45-117); Anion Gap 8 meq/L (5-15); Aspartate Aminotransferase 19 U/L (15-37); Blood Urea Nitrogen 17 mg/dL (7-18); Calcium 9.3 mg/dL (8.5-10.1); Carbon Dioxide 27.7 meq/L (21.0-32.0); Chloride 100 meq/L (98-107); Glomerular Filtration Rate Greater Than 89 mL/min (>89); Glucose,Random 190 mg/dL (74-106); Potassium 4.4 meq/L (3.5-5.1); Sodium 136 meq/L (136-145); Total Protein 7.6 g/dL (6.4-8.2)
[2018-02-03] MEDS ORDERED: amLODIPine 5 MG Tablet PO SCH (09:00)
[2018-02-03] MEDS ORDERED: Lisinopril 5 MG Tablet PO SCH (09:00)
[2018-02-03] MEDS: Insulin NovoLOG Aspart Correctional Sugar Inj SQ SCH ×2 (09:02→11:56)
[2018-02-03] MEDS: Aspirin 325 MG Tablet PO SCH (09:31)
[2018-02-03] MEDS ORDERED: Naproxen 500 MG Tablet PO SCH (10:00)
[2018-02-03 12:43] VITALS: BP 145/74; PULSE 82; TEMP 99.1; O2SAT 100
--- NOTE | 2018-02-03 18:32 | P.PNFP ---
Subjective Interval history: Pt reports improvement today. He think he was just dehydrated. He states he is now able to feel most of his L arm. Discussed with him results of MRI with chronic severe blood vessel disease and the need to get his BP and Diabetes under better control. Answered questions regarding diet and exercise. Pt denies any shortness of breath, chest pain, N/V, fevers or chills, or any new neurologic symptoms. He is eating and drinking ok. <Coco Riojas V - 02/03/18 21:26> Results - Labs Result diagrams: 02/03/18 02:42 02/03/18 02:42 <Enriqueta Ervin - 02/04/18 07:41> Abnormal lab results 02/03/18 02/03/18 Range/Units 07:24 11:44 POC Glucose 184 H 172 H (68-110) mg/dl <Enriqueta Ervin - 02/04/18 07:41> Abnormal lab results 02/02/18 02/03/18 02/03/18 Range/Units 21:47 02:42 07:24 POC Glucose 187 H 184 H (68-110) mg/dl Random Glucose 190 H (74-106) mg/dL Alkaline Phosphatase 129 H (45-117) U/L 02/03/18 Range/Units 11:44 POC Glucose 172 H (68-110) mg/dl Random Glucose (74-106) mg/dL Alkaline Phosphatase (45-117) U/L Short CBC 02/03/18 Range/Units 02:42 WBC 7.0 (4.0-11.0) th/mm3 Hgb 14.3 (13.0-17.0) gm/dL Hct 43.2 (39.0-51.0) % Plt Count 188 (150-450) th/mm3 BMP 02/03/18 02:42 Sodium 136 Potassium 4.4 Chloride 100 Carbon Dioxide 27.7 BUN 17 Creatinine 1.02 Calcium 9.3 D Liver Function 02/03/18 Range/Units 02:42 Total Bilirubin 0.4 (0.2-1.0) mg/dL AST 19 (15-37) U/L ALT 35 (12-78) U/L Alkaline Phosphatase 129 H (45-117) U/L Albumin 4.1 (3.4-5.0) g/dL <Coco Riojas V - 02/03/18 18:32> Physical Exam Vital signs: Vital Signs 02/03/18 07:57 02/03/18 09:00 02/03/18 12:00 Temperature 98.6 F 99.1 F Pulse Rate 70 68 82 Respiratory Rate 18 18 Blood Pressure 123/76 145/74 H Pulse Oximetry 99 100 Intake & Output 02/03/18 02/04/18 02/04/18 18:59 06:59 18:59 Other: Date of Last Bowel Movement 02/03/18 <Enriqueta Ervin - 02/04/18 07:41> Vital Signs 02/02/18 19:52 02/02/18 20:00 02/03/18 00:00 Temperature 98.6 F 97.5 F L Pulse Rate 70 69 68 Respiratory Rate 18 18 Blood Pressure 117/72 115/67 Pulse Oximetry 99 100 02/03/18 03:28 02/03/18 04:54 02/03/18 07:57 Temperature 98.4 F 98.6 F Pulse Rate 68 64 70 Respiratory Rate 18 18 Blood Pressure 119/77 123/76 Pulse Oximetry 100 99 02/03/18 09:00 02/03/18 12:00 Temperature 99.1 F Pulse Rate 68 82 Respiratory Rate 18 Blood Pressure 145/74 H Pulse Oximetry 100 Intake & Output 02/02/18 02/03/18 02/03/18 18:59 06:59 18:59 Intake Total 1520 / 1520 Balance 1520 / 1520 Weight 75.5 kg Intake: IV 1000 / 1000 Oral 520 / 520 Other: Date of Last Bowel Movement 02/01/18 02/03/18 Weight On Admission 75.5 kg <Coco Riojas V - 02/03/18 18:32> Narrative: GENERAL: Well-nourished, well-developed patient. In NAD,resting comfortably SKIN: Warm and dry. HEAD: Normocephalic and atraumatic. EYES: No scleral icterus. No injection or drainage. ENT: No nasal drainage noted. Mucous membranes pink. Airway patent. NECK: Supple, trachea midline. No JVD. CARDIOVASCULAR: Regular rate and rhythm without murmurs, gallops, or rubs. RESPIRATORY: Breath sounds equal bilaterally. No accessory muscle use. ABDOMEN/GI: Abdomen soft, non-tender, bowel sounds present, no rebound, no guarding EXTREMITIES: No cyanosis or edema. NEUROLOGICAL: Awake and alert. Normal speech. CN I-XII grossly intact except for reported decreased sensation of L face. <Coco Riojas V - 02/03/18 21:26> Assessment and Plan - Assessment (1) Left sided numbness Code(s): R20.0 - Anesthesia of skin Status: Resolved (2) Diabetes mellitus Code(s): E11.9 - Type 2 diabetes mellitus without complications Status: Chronic (3) Hypercholesteremia Code(s): E78.00 - Pure hypercholesterolemia, unspecified Status: Chronic (4) Hypertension Code(s): I10 - Essential (primary) hypertension Status: Chronic (5) Nutrition, metabolism, and development symptoms Code(s): R63.8 - Other symptoms and signs concerning food and fluid intake Status: Acute (6) DVT prophylaxis Status: Acute <Enriqueta Ervin - 02/04/18 07:41> (1) Left sided numbness Code(s): R20.0 - Anesthesia of skin Status: Resolved Plan: Pt presenting to ED with complains of L side numbness of his LUE and tingling of his toes on L foot. Also complaining of decreased sensation of L face. He has a questionable history of past TIA's vs DKA vs HHS vs Stroke in the past, with apparently significant complications that resolved over time. Distribution of symptoms is hard to localize to one area or diagnosis. DDx including but not limited to: TIA vs nerve entrapment (with hx of bulging cervical disc) vs worsen chronic polyneuropathy. pt placed on observation - MRI and MRA of brain -Carotid US - Troponin x1 -Aspirin 325mg daily 02/03: Pt with improved symptoms today. MRI w/ chronic demyelinating changed of white matter consistent with small blood vessel disease. Discussed with radiologist which considers is mostly likely to chronic BP and Diabetes. No acute infarcts noted. MRA wnl. Carotid US with some plaque. Troponin negative. - Pt will be discharged home today (2) Diabetes mellitus Code(s): E11.9 - Type 2 diabetes mellitus without complications Status: Chronic Plan: Pt with uncontrolled DM, with fasting sugars on 200's. States his last HbA1c was around 9. - Low dose insulin SS - Continue metformin 500mg qday (3) Hypercholesteremia Code(s): E78.00 - Pure hypercholesterolemia, unspecified Status: Chronic Plan: Chronic. Will continue home medication - Atorvastatin 40mg PO daily (4) Hypertension Code(s): I10 - Essential (primary) hypertension Status: Chronic Plan: Chronic. Normalized since coming to the hospital. Will continue home medication - Amlodipine 5mg q day - Lisinopril 2.5 po daily (5) Nutrition, metabolism, and development symptoms Code(s): R63.8 - Other symptoms and signs concerning food and fluid intake Status: Acute Plan: Diet: cardiac and diabetic Fluids: PO intake Pain: none indicated Electrolytes: monitor and replace as needed (6) DVT prophylaxis Status: Acute Plan: Heparin 5,000 U q12hrs plus SCD's bilateral <Coco Riojas V - 02/03/18 21:17> - Assessment and Plan 57 yr old male with new onset L side numbness and tingling with not defined distribution. Questionable history of TIA vs Stroke in the past, requiring rehabilitation. MRI showing chronic demyelinating disease of the white matter consistent with blood vessel disease likely due to chronic diabetes and HTN. Pt with improved symptoms today. He was extensively counseled on importance of management of chronic disease, he takes medication "PRN". Pt safe to discharge home and follow up with PCP. Pt seen and discussed with Dr. Ervin <Coco Riojas V - 02/03/18 21:26> - Attending Attestation Patient seen and examined 02/03 at 12:45, discussed with resident team. I agree with assessment and management as documented and discussed with me. Pt reports that he is ready for discharge. He understands that he needs to get his diabetes and HTN under control. All questions answered to the best of my abilities. Discharge home today, on ASA 81mg daily and other meds as per med rec. <Enriqueta Ervin - 02/04/18 07:41> <Omid JohnsonCheli Filed: 02/03/18 21:17> (2) Diabetes mellitus Qualifiers: Diabetes mellitus type: type 2 Diabetes mellitus complication detail: with polyneuropathy (4) Hypertension Qualifiers: Hypertension type: unspecified Qualified Code(s): I10 - Essential (primary) hypertension <ArcadioEnriqueta Last Filed: 02/04/18 07:41> (2) Diabetes mellitus Qualifiers: Diabetes mellitus type: type 2 Diabetes mellitus complication detail: with polyneuropathy (4) Hypertension Qualifiers: Hypertension type: unspecified Qualified Code(s): I10 - Essential (primary) hypertension <OmidCoco Delong Filed: 02/03/18 21:17> (2) Diabetes mellitus Qualifiers: Diabetes mellitus type: type 2 Diabetes mellitus complication detail: with polyneuropathy (4) Hypertension Qualifiers: Hypertension type: unspecified Qualified Code(s): I10 - Essential (primary) hypertension <ArcadioEnriqueta Last Filed: 02/04/18 07:41> (2) Diabetes mellitus Qualifiers: Diabetes mellitus type: type 2 Diabetes mellitus complication detail: with polyneuropathy (4) Hypertension Qualifiers: Hypertension type: unspecified Qualified Code(s): I10 - Essential (primary) hypertension
== END 2018-02-03 16:34 | disposition home or self-care (01) ==
LOC: NEPC 08:04 → NEDA 08:04 → NEPGCP 15:17
PROVIDERS: ADMIT Family Medicine; ATTEND Family Medicine

== ENCOUNTER 2018-02-14 10:54 | Observation (INO) ==
[2018-02-14 11:41] LABS: Baso % (Auto) 0.7 % (0.0-2.0); Eos # (Auto) 0.1 th/mm3 (0.0-0.4); Hematocrit 39.6 % (39.0-51.0); Hemoglobin 13.5 gm/dL (13.0-17.0); Lymph # (Auto) 1.2 th/mm3 (1.0-4.8); Lymph % (Auto) 23.4 % (9.0-44.0); Mean Corpuscular HGB Conc 34.2 % (32.0-36.0); Mean Corpuscular Hemoglobin 27.9 pg (27.0-34.0); Mean Corpuscular Volume 81.7 fL (80.0-100.0); Mean Platelet Volume 8.5 fL (7.0-11.0); Mono # (Auto) 0.4 th/mm3 (0.0-0.9); Mono % (Auto) 8.3 % (0.0-8.0); Neut # (Auto) 3.5 th/mm3 (1.8-7.7); Neut % (Auto) 66.6 % (16.0-70.0); Platelet Count 175 th/mm3 (150-450); Red Blood Count 4.84 mil/mm3 (4.50-5.90); Red Cell Distribution Width 13.2 % (11.6-17.2); White Blood Count 5.2 th/mm3 (4.0-11.0)
[2018-02-14 11:54] LABS: INR 1.1 Ratio; Prothrombin Time 11.2 sec (9.8-11.6)
[2018-02-14 12:13] LABS: Alanine Aminotransferase 49 U/L (12-78); Anion Gap 9 meq/L (5-15); Aspartate Aminotransferase 28 U/L (15-37); Blood Urea Nitrogen 16 mg/dL (7-18); Calcium 8.8 mg/dL (8.5-10.1); Carbon Dioxide 25.9 meq/L (21.0-32.0); Chloride 106 meq/L (98-107); Glomerular Filtration Rate Greater Than 89 mL/min (>89); Glucose,Random 141 mg/dL (74-106); Potassium 3.7 meq/L (3.5-5.1); Sodium 141 meq/L (136-145)
[2018-02-14 12:17] LABS: Alkaline Phosphatase 103 U/L (45-117); Creatine Kinase 133 U/L (39-308); Total Protein 7.7 g/dL (6.4-8.2)
--- NOTE | 2018-02-14 12:18 | XR ---
EXAM DATE: 02/14/2018 12:14 PM EDT AGE/SEX: 57 years / Male INDICATIONS: Chest pain, mid to left chest. Patient states he felt like he blacked out. CLINICAL DATA: This is the patient's initial encounter. Patient reports that signs and symptoms have been present for 1 day and indicates a pain score of 2/10. MEDICAL/SURGICAL HISTORY: . H/O SEAN's. Diabetes. Hypertension. Spinal stenosis None. [place] [facility] [place]. . FINDINGS: A single AP view of the chest demonstrates the lungs to be symmetrically aerated without evidence of mass, infiltrate or effusion. The cardiomediastinal contours are unremarkable. Osseous structures a re intact. CONCLUSION: Negative for acute process. Electronically signed by: Sohail Perez MD 02/14/2018 12:17 PM EDT
--- NOTE | 2018-02-14 13:03 | ED ---
HPI General Chief Complaint: Chest Pain Stated Complaint: Chest pain Time Seen by Provider: 02/14/18 12:33 Source: patient Mode of arrival: ambulatory Limitations: no limitations History of Present Illness HPI narrative: 57-year-old male the presents to the ED for evaluation of chest pain. Per patient is having left-sided chest pain since 9:00 this morning. Per patient started all of a sudden. Per patient he has been working a lot lately. He has a history of TIAs and was admitted recently for TIA. He had a full workup and his medications were changed. Per patient follow with his doctor yesterday and he recommended that the lisinopril be stopped because he thought that he was having allergic reactions to it. Per patient he has not taken it since. 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 Per patient the pain gets worse when he moves. Especially when he moves the left arm. He denies any injury or trauma. Per patient he does have a family history of heart disease in the family. He has a history of high cholesterol, high blood pressure, diabetes. Per patient he is never smoked. He is never had a stress test. 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 He denies any other medical issues. Per patient he himself gave aspirin and ibuprofen to see if it will help but he did help until he started working again and the pain continued. Per patient he did start having some shortness of breath with it. Per patient [facility] was called and he was given nitroglycerin and aspirin with improvement of symptoms. Per patient currently he is not as symptomatic. Per patient when he had the pain feels like a pressure of the pain was 7 out of 10. He denies any pain currently. No other medical issues at this time. Complete Quality Measures for STEMI Alert Patients Related Data Home Medications Medication Instructions Recorded Confirmed Lactobacillus acidoph-pectin 1 cap PO TIDWM 02/02/18 02/14/18 [Acidophilus-Pectin] amlodipine 5 mg PO DAILY 02/02/18 02/14/18 atorvastatin 40 mg PO DAILY 02/02/18 02/14/18 metformin 500 mg PO BID 02/02/18 02/14/18 Previous Rx's Medication Instructions Recorded aspirin [Enteric Coated Aspirin] 81 mg PO DAILY 30 Days #30 tab 02/03/18 naproxen 500 mg PO BID #15 tab 02/03/18 docusate sodium [Colace] 100 mg PO BID #20 cap 02/09/18 Allergies Allergy/AdvReac Type Severity Reaction Status Date / Time lactose Allergy Severe LACTOSE Verified 02/14/18 11:00 INTOLERANT Review of Systems ROS: all other systems reviewed are negative PMFSH History History Provided By: Patient Medical History Medical History TIA (transient ischemic attack) (Acute) CVA (cerebral vascular accident) (Acute) Hypercholesteremia (Acute) Spinal stenosis (Acute) Chronic back pain (Acute) Hypertension (Acute) Diabetes (Acute) Social History Social History Substance History: No History of Abuse Second Hand Smoke Exposure: No Smoking Status: Never smoker Tobacco Type: Cigarettes How Often Do You Have a Drink Containing Alcohol: Never Recent Travel in [facility] within the Last 8 Weeks: No Recent Out of Country Travel within the Last 8 Weeks: No Exam Narrative Exam Narrative: GENERAL: Well appearing SKIN: Focused skin assessment warm/dry. HEAD: Atraumatic. Normocephalic. EYES: Pupils equal and round. No scleral icterus. No injection or drainage. ENT: No nasal bleeding or discharge. Mucous membranes pink and moist. NECK: Trachea midline. No JVD. CARDIOVASCULAR: Regular rate and rhythm. No murmur appreciated. RESPIRATORY: No accessory muscle use. Clear to auscultation. Breath sounds equal bilaterally. GASTROINTESTINAL: Abdomen soft, non-tender, nondistended. Hepatic and splenic margins not palpable. MUSCULOSKELETAL: No obvious deformities. No clubbing. No cyanosis. No edema. Full range of motion of the upper and lower extremities bilaterally. 2+ pulses bilaterally. NEUROLOGICAL: Awake and alert. No obvious cranial nerve deficits. Motor grossly within normal limits. Normal speech. PSYCHIATRIC: Appropriate mood and affect; insight and judgment normal. Course Initial Documented Vital Signs Temperature 98.4 F 02/14/18 10:57 Pulse Rate 79 02/14/18 10:57 Respiratory Rate 18 02/14/18 10:57 Blood Pressure 105/67 02/14/18 10:57 Pulse Oximetry 99 02/14/18 10:57 Last Documented Vital Signs Temperature 98.4 F 02/14/18 10:57 Pulse Rate 79 02/14/18 10:57 Respiratory Rate 18 02/14/18 10:57 Blood Pressure 105/67 02/14/18 10:57 Pulse Oximetry 99 02/14/18 10:57 Medical Decision Making BLUE Attestation BLUE supervised visit: Yes Attestation: The history, exam, and medical decision-making in the associated mid-level provider note were completed with my assistance. I reviewed and agree with the findings presented. I attest that I had a pole-ft-silw encounter with the patient on the same day, and personally performed and documented my assessment and findings in the medical record. *My assessment and Findings: Is a 57-year-old man, in the ED with chest pain. Ongoing for the past day or so. Multiple risk factors. Seems low risk for ACS. Do not see any evidence of PE or dissection. EKG is really unremarkable. We will plan chest pain center admission. MDM Narrative Medical decision making narrative: 57-year-old male the presents to the ED for evaluation of left-sided chest pain. Patient was properly examined and was found to have signs and symptoms concerning for ACS. Labs and imaging were done in triage. This was negative. Patient was reassured. Patient has never had a stress test. He does have significant risk factors including family history, diabetes, hypertension, high cholesterol, age and been male. At this time I do recommend admission to the chest pain center for stress test. Patient agrees with this plan. Patient already given aspirin nitroglycerin by [facility]. Patient was admitted to chest pain center by me. Case was discussed with my attending Dr. Gray of agrees with plan. Medical Screen Exam Complete: Yes Emergency Medical Condition: Yes Differential Diagnosis Differential Diagnosis: Stable angina versus unstable angina versus ACS Medical Records Medical records reviewed: Yes I reviewed the patient's medical records. Lab Data Lab results reviewed: Yes I reviewed the patient's lab results. Lab results narrative: GENERAL: [-] Troponin and CK-MB negative. Result diagrams: 02/14/18 11:20 02/14/18 11:20 Lab Results 02/14/18 02/14/18 02/14/18 Range/Units 11:20 11:20 11:20 WBC 5.2 (4.0-11.0) th/mm3 RBC 4.84 (4.50-5.90) mil/mm3 Hgb 13.5 (13.0-17.0) gm/dL Hct 39.6 (39.0-51.0) % MCV 81.7 (80.0-100.0) fL MCH 27.9 (27.0-34.0) pg MCHC 34.2 (32.0-36.0) % RDW 13.2 (11.6-17.2) % Plt Count 175 (150-450) th/mm3 MPV 8.5 (7.0-11.0) fL Neut % (Auto) 66.6 (16.0-70.0) % Lymph % (Auto) 23.4 (9.0-44.0) % Owen % (Auto) 8.3 H (0.0-8.0) % Eos % (Auto) 1.0 (0.0-4.0) % Baso % (Auto) 0.7 (0.0-2.0) % Neut # (Auto) 3.5 (1.8-7.7) th/mm3 Lymph # (Auto) 1.2 (1.0-4.8) th/mm3 Owen # (Auto) 0.4 (0.0-0.9) th/mm3 Eos # (Auto) 0.1 (0.0-0.4) th/mm3 Baso # (Auto) 0.0 (0.0-0.2) th/mm3 WBC Differential . Differential Comment Auto diff final PT 11.2 (9.8-11.6) sec INR 1.1 Ratio APTT 25.0 (24.3-30.1) sec Sodium 141 (136-145) meq/L Potassium 3.7 (3.5-5.1) meq/L Chloride 106 (98-107) meq/L Carbon Dioxide 25.9 (21.0-32.0) meq/L Anion Gap 9 (5-15) meq/L BUN 16 (7-18) mg/dL Creatinine 0.97 (0.60-1.30) mg/dL Estimated GFR Greater than 89 (>89) mL/min Random Glucose 141 H (74-106) mg/dL Calcium 8.8 (8.5-10.1) mg/dL Total Bilirubin 0.6 (0.2-1.0) mg/dL AST 28 (15-37) U/L ALT 49 (12-78) U/L Alkaline Phosphatase 103 (45-117) U/L Total Creatine Kinase 133 (39-308) U/L CK-MB (CK-2) Less than 1.0 (0.5-3.6) ng/mL Troponin I Less than 0.02 L (0.02-0.05) ng/mL Total Protein 7.7 (6.4-8.2) g/dL Albumin 4.0 (3.4-5.0) g/dL Imaging Data Attestation: I personally reviewed and interpreted this imaging study as follows : Radiologist's impression: Chest X-Ray 02/14/18 11:14 CONCLUSION: Negative for acute process. ECG Data Attestation: I personally reviewed and interpreted this ECG as follows: Interpretation: EKG show sinus rhythm with no sign of acute ischemia and arrhythmia. Read by me and attending. Discharge Plan Discharge Disposition Patient Disposition: 30 Still Patient Discharge Details Diagnosis: Chest pain Physicians Team ED Provider: Lalo Gray ED Midlevel Provider: True Lerner Primary Care Provider: No Carey Attending Provider: Sharon Queen Status ED Status: Admitted Observation Patient
[2018-02-14] MEDS ORDERED: Acetaminophen 500 MG Tablet PO PRN (14:22)
--- NOTE | 2018-02-14 15:16 | P.HPCA ---
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 Is left-sided and described as a dull/pressure discomfort. Rated as a 4 out of 10. Lasted about 30 minutes. He states he is really close to the 911 dispatch office and they were there almost immediately. He states he was given sublingual nitroglycerin which seemed to resolve his discomfort and they have not recurred. Denies shortness of breath, nausea, diaphoresis. Cannot recall ever having a stress test. Complains of tingling sensation in his right arm and states he has dealt with that for quite some time. Thought at one point was related to lisinopril so we talked his doctor about that and it was discontinued. States he still has the same issues. I did explain to him that with history of diabetes he should be on MIGUEL ANGEL inhibitor like lisinopril if tolerated. History of hypertension, hyperlipidemia, diabetes, chronic back pain with spinal stenosis. I reviewed records were he had a history of seizure disorder one point. He also states that he has had a CVA several years ago and was treated for facility and has had multiple TIAs but I do not find records of that and he reports here. Patient said she has been a non-smoker. He states he smoked about a year but quit smoking 5 years ago. Denies family history of CAD. - Diagnosis (1) Chest pain (2) Hypertension (3) Hypercholesteremia (4) Diabetes mellitus (5) Chronic back pain Review of Systems General: Patient denies fevers, chills, and recent travel. HEENT: Patient denies headache, sore throat, difficulty swallowing. Cardiovascular: Has the chest discomfort as mentioned above. Denies sensation of heart beating rapidly or irregularly. No syncope. Denies diaphoresis. Respiratory: He was short of breath. Denies inspirational chest discomfort. Denies coughing wheezing or hemoptysis. GI: Patient denies nausea, vomiting, diarrhea, abdominal pain, bloody stools. Musculoskeletal: Chronic back pain. Patient denies joint pain or edema. Denies calf pain or edema. Neurovascular: Patient denies numbness, tingling, weakness in extremities. Denies headache. Endocrine: Denies polyuria and polydipsia. Hematologic: Denies easy bruising. Skin: Denies rash or itching. PMFSH - History History Provided By: Patient - Medical History Medical History: Medical History (Last Reviewed 02/14/18 @ 12:58 by KRISTYN Walters) TIA (transient ischemic attack) (Acute) CVA (cerebral vascular accident) (Acute) Hypercholesteremia (Acute) Spinal stenosis (Acute) Chronic back pain (Acute) Hypertension (Acute) Diabetes (Acute) - Tobacco History Second Hand Smoke Exposure: No Smoking Status: Never smoker Tobacco Type: Cigarettes - Alcohol History How Often Do You Have a Drink Containing Alcohol: Never - Substance Use History Substance History: No History of Abuse - Travel History Recent Travel in the [facility] Within the Last 8 Weeks: No Recent Travel Out of the Country Within the Last 8 Weeks: No Medications and Allergies Active Medications: Active Medications Acetaminophen (Tylenol) 500 mg PO Q6H PRN PRN Reason: pain scale 1-5 Hydrocodone Bitart/Acetaminophen ([place] 7.5/325) 1 tab PO Q6H PRN PRN Reason: pain scale 6-10 Albuterol (Duoneb Neb (Prn)) 1 ampul NEB Q4HR NEB PRN PRN Reason: SHORTNESS OF BREATH/WHEEZING Amlodipine Besylate (Norvasc) 5 mg PO DAILY [facility] Aspirin (Aspirin) 325 mg PO DAILY [facility] Atorvastatin Calcium (Lipitor) 40 mg PO DAILY [facility] Clonidine HCl (Catapres) 0.1 mg PO Q6H PRN PRN Reason: SBP >165 OR DBP > 110 Docusate Sodium (Colace) 100 mg PO BID [facility] Insulin Human Regular (Novolin R Correctional Sugar Inj) 0 units SQ ACHS MALIK; Protocol Ondansetron HCl (Zofran Inj) 4 mg IV.PUSH Q6H PRN PRN Reason: NAUSEA Pantoprazole Sodium (Protonix) 40 mg PO DAILY MALIK Sodium Chloride (Ns Flush) 2 ml IV.FLUSH BID MALIK Sodium Chloride (Ns Flush) 2 ml IV.FLUSH PRN PRN PRN Reason: FLUSH AFTER USING IV ACCESS Allergies Allergy/AdvReac Type Severity Reaction Status Date / Time lactose Allergy Severe LACTOSE Verified 02/14/18 11:00 INTOLERANT Home Medications Medication Instructions Recorded Confirmed Type Lactobacillus acidoph-pectin 1 cap PO TIDWM 02/02/18 02/14/18 History [Acidophilus-Pectin] amlodipine 5 mg PO DAILY 02/02/18 02/14/18 History atorvastatin 40 mg PO DAILY 02/02/18 02/14/18 History metformin 500 mg PO BID 02/02/18 02/14/18 History Exam Vital signs: Vital Signs 02/14/18 10:57 Temperature 98.4 F Pulse Rate 79 Respiratory Rate 18 Blood Pressure 105/67 Pulse Oximetry 99 Intake & Output 02/13/18 02/14/18 02/14/18 18:59 06:59 18:59 Weight 63.503 kg Narrative: GENERAL: This is a well-nourished, well-developed patient, in no apparent distress. Patient speaks in clear complete sentences. Patient is pleasant. HEENT: Head is atraumatic and normocephalic. Neck is supple without lymphadenopathy and trachea is midline. No JVD or carotid bruits. CARDIOVASCULAR: Regular rate and rhythm without murmurs, gallops, or rubs. RESPIRATORY: Clear to auscultation. Breath sounds equal bilaterally. No wheezes , rales, or rhonchi. Chest wall is nontender. No use of accessory muscles. GASTROINTESTINAL: Abdomen is nontender, nondistended. Abdomen soft. No obvious pulsatile mass or bruit. No CVA tenderness. Strong femoral pulses bilaterally. Normal bowel sounds in all quadrants. MUSCULOSKELETAL: Patient is moving upper and lower extremities freely. No calf tenderness or edema, no Homans sign. Strong pulses in upper and lower extremities. NEUROLOGICAL: Patient is alert and oriented. Cranial nerves 2-12 are grossly intact. No focal deficits and speech is clear. SKIN: No rash and turgor is normal. Results 02/14/18 11:20 02/14/18 11:20 Cardiac Enzymes 02/14/18 Range/Units 11: AST 28 (15-37) U/L CK-MB (CK-2) Less than 1.0 (0.5-3.6) ng/mL Troponin I Less than 0.02 L (0.02-0.05) ng/mL Coagulation 02/14/18 Range/Units 11:20 PT 11.2 (9.8-11.6) sec APTT 25.0 (24.3-30.1) sec CBC 02/14/18 Range/Units 11:20 WBC 5.2 (4.0-11.0) th/mm3 RBC 4.84 (4.50-5.90) mil/mm3 Hgb 13.5 (13.0-17.0) gm/dL Hct 39.6 (39.0-51.0) % Plt Count 175 (150-450) th/mm3 Neut # (Auto) 3.5 (1.8-7.7) th/mm3 Lymph # (Auto) 1.2 (1.0-4.8) th/mm3 [place] # (Auto) 0.4 (0.0-0.9) th/mm3 Eos # (Auto) 0.1 (0.0-0.4) th/mm3 Baso # (Auto) 0.0 (0.0-0.2) th/mm3 Comprehensive Metabolic Panel 02/14/18 Range/Units 11:20 Sodium 141 (136-145) meq/L Potassium 3.7 (3.5-5.1) meq/L Chloride 106 (98-107) meq/L Carbon Dioxide 25.9 (21.0-32.0) meq/L BUN 16 (7-18) mg/dL Creatinine 0.97 (0.60-1.30) mg/dL Calcium 8.8 (8.5-10.1) mg/dL AST 28 (15-37) U/L ALT 49 (12-78) U/L Alkaline Phosphatase 103 (45-117) U/L Total Protein 7.7 (6.4-8.2) g/dL Albumin 4.0 (3.4-5.0) g/dL Intake and Output 02/13/18 02/14/18 02/14/18 22:59 06:59 14:59 Other: Weight 63.503 kg Patient Weight 02/15/18 06:59 Weight 63.503 kg EKG interpretations - EKG EKG shows: sinus rhythm (Initial EKG is sinus rhythm without significant ST segment depressions or elevations.) Caprini VTE Risk Assessment Caprini VTE Risk Assessment: No/Low Risk (score <= 1) Caprini Risk Assessment Model: Point Value = 1 Point Value = 2 Point Value = 3 Point Value = 5 Age 41-60 Minor surgery BMI > 25 kg/m2 Swollen legs Varicose veins or History of unexplained or recurrent spontaneous Oral contraceptives or hormone replacement Sepsis (< 1 month) Serious lung disease, including pneumonia (< 1 month) Abnormal pulmonary function Acute myocardial infarction Congestive heart failure (< 1 month) History of inflammatory bowel disease Medical patient at bed rest Age 61-74 Arthroscopic surgery Major open surgery (> 45 min) Laparoscopic surgery (> 45 min) Malignancy Confined to bed (> 72 hours) Immobilizing plaster cast Central venous access Age >= 75 History of VTE Family history of VTE Factor V Leiden Prothrombin [id number] Lupus anticoagulant Anticardiolipin antibodies Elevated serum homocysteine Heparin-induced thrombocytopenia Other congenital or acquired thrombophilia Stroke (< 1 month) Elective arthroplasty Hip, pelvis, or leg fracture Acute spinal cord injury (< 1 month) Prophylaxis Regimen: Total Risk Factor Score Risk Level Prophylaxis Regimen 0-1 Low Early ambulation 2 Moderate Order ONE of the following: *Sequential Compression Device (SCD) *Heparin 5000 units SQ BID 3-4 Higher Order ONE of the following medications: *Heparin 5000 units SQ TID *Enoxaparin/Lovenox 40 mg SQ daily (WT < 150 kg, CrCl > 30 mL/min) *Enoxaparin/Lovenox 30 mg SQ daily (WT < 150 kg, CrCl > 10-29 mL/min) *Enoxaparin/Lovenox 30 mg SQ BID (WT < 150 kg, CrCl > 30 mL/min) AND/OR *Sequential Compression Device (SCD) 5 or more Highest Order ONE of the following medications: *Heparin 5000 units SQ TID (Preferred with Epidurals) *Enoxaparin/Lovenox 40 mg SQ daily (WT < 150 kg, CrCl > 30 mL/min) *Enoxaparin/Lovenox 30 mg SQ daily (WT < 150 kg, CrCl > 10-29 mL/min) *Enoxaparin/Lovenox 30 mg SQ BID (WT < 150 kg, CrCl > 30 mL/min) AND *Sequential Compression Device (SCD) Assessment and Plan - Assessment (1) Chest pain Code(s): R07.9 - Chest pain, unspecified Status: Acute (2) Hypertension Code(s): I10 - Essential (primary) hypertension Status: Chronic (3) Hypercholesteremia Code(s): E78.00 - Pure hypercholesterolemia, unspecified Status: Chronic (4) Diabetes mellitus Code(s): E11.9 - Type 2 diabetes mellitus without complications Status: Chronic (5) Chronic back pain Code(s): M54.9 - Dorsalgia, unspecified; G89.29 - Other chronic pain Status: Acute - Plan * Chest pain: Patient will continue to have serial cardiac enzymes and EKGs for ruling out purposes. He will be seen by Dr. Queen cardiology in the chest pain center and likely undergo a Abebe protocol ETT in the morning if he rules out. He would be discharged home if the stress test is nonischemic with instructions to follow-up with PCP. * Hypertension: Continue medication. * Hyperlipidemia: Continue medication. * Diabetes: Have sliding scale insulin coverage while in chest pain center. Otherwise follow diabetic diet. Resume medication at discharge. * Chronic back pain: Have analgesia as needed. Patient is stable at this time. He is agreeable to this plan. (1) Chest pain Qualifiers: Chest pain type: unspecified Qualified Code(s): R07.9 - Chest pain, unspecified
[2018-02-14] MEDS: amLODIPine 5 MG Tablet PO SCH (16:20)
[2018-02-14 16:25] LABS: Creatine Kinase 116 U/L (39-308)
[2018-02-14] MEDS: Insulin NovoLIN Regular Correctional Sugar Inj SQ SCH ×2 (17:46→22:32)
[2018-02-14 22:36] LABS: Creatine Kinase 115 U/L (39-308)
[2018-02-14] MEDS: Docusate Sodium 100 MG Capsule PO SCH (23:43)
[2018-02-15] MEDS: Insulin NovoLIN Regular Correctional Sugar Inj SQ SCH ×4 (08:32→20:34)
--- NOTE | 2018-02-15 09:05 | P.PNCA ---
Subjective Interval history: No further complaints. Expresses concern may not be able to walk on treadmill due to chronic back pain. Physical Exam Vital signs: Vital Signs 02/14/18 10:57 02/14/18 15:55 02/14/18 17:00 Temperature 98.4 F 97.7 F Pulse Rate 79 97 H 83 Respiratory Rate 18 16 Blood Pressure 105/67 117/74 Pulse Oximetry 99 100 02/14/18 19:38 02/14/18 20:00 02/14/18 22:05 Temperature 98.4 F Pulse Rate 74 76 Respiratory Rate 17 17 Blood Pressure 113/65 112/74 Pulse Oximetry 96 96 95 02/15/18 04:00 02/15/18 04:26 02/15/18 07:25 Temperature 98.4 F 98.6 F Pulse Rate 68 68 71 Respiratory Rate 16 14 Blood Pressure 108/56 L 99/73 L Pulse Oximetry 97 100 02/15/18 08:11 Temperature Pulse Rate Respiratory Rate Blood Pressure Pulse Oximetry 96 Intake & Output 02/14/18 02/15/18 02/15/18 18:59 06:59 18:59 Output Total 650 / 650 Balance -650 / -650 Weight 63.503 kg 72.6 kg Output: Urine 650 / 650 Other: # Voids 2 - Constitutional no acute distress - Routine HEENT Exam Head: Present: normocephalic, atraumatic - Routine Respiratory Exam Present: CTA bilaterally. Absent: accessory muscle use, respiratory distress - Routine Cardiovascular Exam Present: RRR. Absent: murmur, gallop, rubs - Routine Abdominal Exam Present: soft, normoactive bowel sounds Assessment and Plan - Assessment (1) Chest pain Code(s): R07.9 - Chest pain, unspecified Status: Acute Plan: Admitted chest pain center. Previously evaluated by Dr. Sharon Queen. ACS ruled out with 3 sets of EKGs and cardiac enzymes. Proceed with plan nuclear treadmill stress testing this morning. Patient agreeable to plan of care however endorses he is concerned he may have to switch to chemical tests due to chronic back pain. Agrees to attempt exercise test at this time. If cardiac testing unremarkable, plan to discharge home with follow-up with primary care provider. (2) Hypertension Code(s): I10 - Essential (primary) hypertension Status: Chronic Plan: Continue amlodipine. (3) Hypercholesteremia Code(s): E78.00 - Pure hypercholesterolemia, unspecified Status: Chronic Plan: Continue atorvastatin (4) Diabetes mellitus Code(s): E11.9 - Type 2 diabetes mellitus without complications Status: Chronic Plan: Hold metformin. SSI low dose coverage previously ordered. Follow-up with primary care provider upon discharge continuing metformin as previously instructed. (5) Chronic back pain Code(s): M54.9 - Dorsalgia, unspecified; G89.29 - Other chronic pain Status: Chronic Plan: [place] as needed previously ordered. Requests to take [place] after cardiac testing if needed. Discussed plan of care with RN. Patient initially requested naproxen 500 mg twice daily. Offered to reordered, but then patient declined wanting medication. Will reevaluate. - Plan * Chest pain: Patient will continue to have serial cardiac enzymes and EKGs for ruling out purposes. He will be seen by Dr. Queen cardiology in the chest pain center and likely undergo a Abebe protocol ETT in the morning if he rules out. He would be discharged home if the stress test is nonischemic with instructions to follow-up with PCP. * Hypertension: Continue medication. * Hyperlipidemia: Continue medication. * Diabetes: Have sliding scale insulin coverage while in chest pain center. Otherwise follow diabetic diet. Resume medication at discharge. * Chronic back pain: Have analgesia as needed. Patient is stable at this time. He is agreeable to this plan. (1) Chest pain Qualifiers: Chest pain type: unspecified Qualified Code(s): R07.9 - Chest pain, unspecified (2) Hypertension Qualifiers: Hypertension type: unspecified Qualified Code(s): I10 - Essential (primary) hypertension (4) Diabetes mellitus Qualifiers: Diabetes mellitus type: type 2 Chronic kidney disease stage: unspecified stage
[2018-02-15] MEDS: Aspirin 325 MG Tablet PO SCH (09:33)
[2018-02-15] MEDS: Docusate Sodium 100 MG Capsule PO SCH ×2 (09:34→20:34)
[2018-02-15] MEDS: amLODIPine 5 MG Tablet PO SCH (09:34)
--- NOTE | 2018-02-15 14:38 | ECG ---
Date Performed: 02/14/2018 Time Performed: 22:04:07 PTAGE: 57 years EKG: Sinus rhythm NORMAL ECG PREVIOUS TRACING : 02/14/2018 14.27 Since previous tracing, no significant change noted DOCTOR: Nader Carey Interpretating Date/Time 02/15/2018 14:36:36
--- NOTE | 2018-02-15 14:40 | ECG ---
Date Performed: 02/14/2018 Time Performed: 14:27:30 PTAGE: 57 years EKG: Sinus rhythm NORMAL ECG PREVIOUS TRACING : 02/14/2018 11.08 Since previous tracing, no significant change noted DOCTOR: Nader Carey Interpretating Date/Time 02/15/2018 14:38:26
--- NOTE | 2018-02-15 14:40 | ECG ---
Date Performed: 02/14/2018 Time Performed: 11:08:40 PTAGE: 57 years EKG: Sinus rhythm NORMAL ECG PREVIOUS TRACING : 02/09/2018 12.57 Since previous tracing, no significant change noted DOCTOR: Nader Carey Interpretating Date/Time 02/15/2018 14:38:37
--- NOTE | 2018-02-15 16:12 | NM ---
EXAM DATE: 02/15/2018 4:05 PM EDT AGE/SEX: 57 years / Male INDICATIONS: Angina. Chest pain. CLINICAL DATA: This is the patient's initial encounter. Patient reports that signs and symptoms have been present for 1 day and indicates a pain score of 0/10. MEDICAL/SURGICAL HISTORY: Diabetes mellitus type II. Hypertension. Cerebrovascular disease. N one. COMPARISON: No prior exams available for comparison. DOSE: 8.3 mCi Tc 99m Myoview at rest 28.1 mCi [id number] at stress REST HEART RATE: 88 BPM TARGET HEART RATE: 139 BPM MAX HEART RATE: 136 BPM REST BLOOD PRESSURE: 100/64 mmHg MAX BLOOD PRESSURE: 110/68 mmHg EJECTION FRACTION: 68 % TECHNIQUE: The patient underwent upright treadmill exercise in the chest pain center. Continuous EC G tracing was monitored during stress. Gated SPECT imaging was performed after stress, and conventio nal SPECT imaging was performed at rest. The examination was performed on a SPECT/CT scanner, both a ttenuation-corrected and non-corrected datasets were reviewed. FINDINGS: Distribution: The maximum perfused segment at stress is in the lateral wall. Perfusion: There is a small reversible perfusion defect at the inferior wall. There is a small rev ersible perfusion defect at the anterolateral wall. Gated Study: There are intact wall motion and wall thickening without hypokinetic or dyskinetic segme nts. The ejection fraction is calculated at 68%. RISK CATEGORY: Low (<1% Annual Motality Rate) CONCLUSION: 1. Small reversible perfusion defects are suspected as described above. 2. The ejection fraction is normal. Electronically signed by: Jonn Royal MD 02/15/2018 4:11 PM EDT
[2018-02-16] MEDS: Insulin NovoLIN Regular Correctional Sugar Inj SQ SCH ×4 (08:14→20:56)
[2018-02-16] MEDS: Docusate Sodium 100 MG Capsule PO SCH ×2 (09:03→20:58)
[2018-02-16] MEDS: amLODIPine 5 MG Tablet PO SCH (09:03)
[2018-02-16] MEDS: Aspirin 325 MG Tablet PO SCH (09:03)
[2018-02-16] MEDS ORDERED: Heparin/NS PF Inj 1,500 ML ONE (09:11)
[2018-02-16] MEDS ORDERED: Heparin 10,000 UNITS/10 ML Vial (for IV use) ONE (09:11)
[2018-02-16] MEDS ORDERED: fentaNYL Citrate Inj 100 MCG/2 ML Ampul ONE (09:34)
--- NOTE | 2018-02-16 10:53 | CATHPROC ---
[facility] HIS Report Study Information Study Number Admission Scheduled Start Study Start [id number] Feb 14 2018 12:56PM 02/16/2018 Feb 16 2018 9:14AM [facility] Cardiac Pacer/ICD Admit Source Facility Department Emergency department [facility] - Personal Financial Advisor Physician and Clinical Staff Initial Michael Gardner Sales And Marketing Agent Amish Keyes RN Recorder Maria Del Carmen Marvin,RT(R) Scrub Student, VENETIAN BLIND MECHANIC/RT(R) Scrub Kim Odom ,RT(R) Procedures Performed Procedure Location (Site) Vessel Name Coronary Angiograms LCA Left Coronary Coronary Angiograms RCA Right Coronary Drug Eluting Inflatio LAD Mid Left Coronary PTCA LAD Mid Left Coronary Wire insertion Radial (right) Radial Art. Equipment Time Compensation And Benefits Manager Description Size Mfg Part Number Used/Scraped WIRE, BALANCE MIDDLEWEIGHT [id number] 10:12 [employer] 190CM Used 190CM *[id number] TRANSDUCER, TRUWAVE [id number] 09:18 JOHNSON PALOMARES * Used W/STOCKCOCK *[id number] *[id number] [id number] *[id number] 534-521T *[id number] 09:18 [employer] BLANKET,WARM AIR CCL * Used *[id number] 09:18 [employer] PACK, CCL CUSTOM * Used *[id number] 09:18 [employer] SUPPORT, ARTERIAL ADULT [id number] *[id number] Used BALLOON, 2.0 X 12MM NC [id number] 10:31 [employer] 12MM Used EUPHORA *[id number] 10:24 [employer] BALLOON, 2.0 X 15MM EUPHORA 15MM Used *[id number] BALLOON, 2.25 X 12MM NC [id number] 10:34 [employer] 12MM Used EUPHORA *[id number] [id number] 10:28 [employer] STENT, 2.0 22MM ELIZABETH 2.0 X 22MM Used *[id number] 10:04 [employer]/AVE EBU 3.5 Z2 GUIDE CATHETER FR 6 Used *[id number] [id number] 10:22 My COI 30 LUCAS INDEFLATOR Used *[id number] BAND, RADIAL COMPRESSION TR [id number] 10:44 [employer] MEDICAL 24CM Used SHORT 24 *[id number] 09:18 [employer] WIRE, EXCHANGE 260CM 3MMJ 260CM Used *[id number] 09:18 [employer]IC MANIFOLD, 4 PORT * Used *[id number] 09:18 [employer] OMNIPAQUE, 350 MG, 150ML 150ML [id number] Used SHEATH, FR6 TRANSRADIAL [id number] 09:18 [employer] MEDICAL FR 6 Used SLENDER 10CM *[id number] Equipment Model, Serial, Lot Number and Expiration Data Description Model Number Serial Number Lot Number Expiration Date STENT, 2.0 22MM ELIZABETH [id number] 05-20-2019 History: Current Medications Medication Dosage/Unit Route Frequency Last Date/Time Taken Glucophage History: Allergies Allergy Reaction lactose LACTOSE INTOLERANT History: Risk Factors Family History of Hypertension Dyslipidemia Previous MO Previous Heart Failure Premature CAD Yes Yes No No No Prior Valve Prior PCI Prior CABG Surgery No No No Cerebrovascular Peripheral Artery Chronic Lung On Dialysis Diabetes Diabetes Therapy Disease Disease Disease No Yes No Yes Yes Oral History: Symptoms/Diagnosis Selection Items Chest pain History: Stress Tests Stress or Imaging Studies Performed Yes Standard Exercise Stress Test No Stress Echo No Stress Test SPECT Stress Test SPECT Result Stress Test SPECT Ischemia Risk/Extent Yes Positive Intermediate Stress Test CMR No Cardiac CTA Coronary Calcium Score No No Labs Hgb (g/dl) Hct (%) WBC (l/cumm) Platelets (thousands) 11.60-17.00 35.00-51.00 4.00-11.00 150.00-450.00 13.5 39.6 5.2 175 Glucose (mg/dl) BUN (mg/dl) Creatinine (mg/dl) BUN:Creatinine (1:x) 74.00-106.00 7.00-18.00 0.50-1.30 10.00-20.00 141 16 0.9 17.8 Na (meq/l) K (meq/l) 136.00-145.00 3.50-5.10 141 3.7 INR (PTT:PT) 0.90-1.10 1.1 Troponin I (ng/ml) CPK-MB (ng/ML) 0.02-0.05 0.50-3.60 0.02 Not Drawn Medication Medication Total Dose (Bolus/Oral) Medication Total Dosage/Unit 1% XYLOCAINE 5 mL FENTANYL 50 mcg HEPARIN 6400 units NTG (IC) 100 mcg PLAVIX 600 mg RADIAL COCKTAIL 5 mL (Bolus) VERSED 2 mg Medications (Bolus/Oral) Medication Time Given Dosage/Unit Administered By Reason VERSED 02/16/2018 9:48:13 AM 2 mg Amish Keyes 2 mg VERSED given in lab by Amish Keyes RN in Right Hand via Peripheral IV. Ordered by Erasmo Wilburn FENTANYL 02/16/2018 9:49:32 AM 50 mcg Amish Keyes 50 mcg FENTANYL given in lab by Amish Keyes RN in Right Hand via Peripheral IV. Ordered by Michael Collado 1% XYLOCAINE 02/16/2018 9:49:32 AM 5 mL Michael Wilburn 5 mL 1% XYLOCAINE given in lab by Michael Wilburn in Right Radial via Subcutaneous. RADIAL COCKTAIL 02/16/2018 9:50:58 AM 5 mL (Bolus) Michael Wilburn 5 mL (Bolus) RADIAL COCKTAIL given in lab by Michael Wilburn via Radial. Using [Solution Name]. R frances: Ntg 200mcg Verapamil 2.5mg Heparin 2800U. HEPARIN 02/16/2018 10:05:08 AM 4400 units Amish Keyes 4400 units HEPARIN given in lab by Amish Keyes RN in Right Hand via Peripheral IV. Ordered by Michael Carter HEPARIN 02/16/2018 10:17:32 AM 2000 units Amish Keyes 2000 units HEPARIN given in lab by Amish Keyes RN in Right Hand via Peripheral IV. Ordered by Michael Carter NTG (IC) 02/16/2018 10:37:15 AM 100 mcg Michael Wilburn 100 mcg NTG (IC) given in lab by Michael Wilburn in Right Radial via Intra-coronary. PLAVIX 02/16/2018 10:41:23 AM 600 mg Amish Keyes 600 mg PLAVIX given in lab by Amish Keyes RN via Oral. Ordered by Michael Wilburn Medication (Drip) Medication Time Given Dosage/Unit Concentration/Unit Diluent (ml) Solution IV Solutions 02/16/2018 9:18:58 AM 50 mL (IV) NaCl .9 IV Solutions given in lab by Amish Keyes RN in Right Hand via Peripheral IV. Pump/Drip Flow using NaCl .9. Initial Case Assessment Cardiovascular Edema Present Skin color Skin None Normal Warm Dry Circulatory - Right Pulses Dorsalis Pedis Femoral Radial 1 2 2 Scale (0,1,2,3,4,d) Circulatory - Left Pulses Dorsalis Pedis Femoral Radial 1 2 Scale (0,1,2,3,4,d) Neurological State Oriented to time-place- Alert Moves all extremities person Chronological Log Time Study Chronological Log 9:18:35 Patient arrived via Bed. 9:18:41 Patient Name, D.O.B, / Armband Verified By R.N. 9:18:41 Consent signed by the physician and the patient and verified by the Personal Financial Advisor staff. 9:18:44 Pre-op and post- op instructions given; patient acknowledges understanding of instructions. 9:18:46 Presedation assessment performed by Personal Financial Advisor RN. 9:18:47 Allens test performed on the right radial and ulnar artery. 9:18:50 Patient has been NPO for More than 6Hrs. 9:18:51 Skin Breakdown- none per pt 9:18:51 Patient Warmer Placed on the Table. 9:18:52 Tere Prominences Protected 9:18:54 A # 20 IV was noted in the Hand (right). Grade = 0 9:18:58 IV Solutions given in lab by Amish Keyes RN in Right Hand via Peripheral IV. Pump/Drip F low using NaCl .9. 9:19:09 History and physical on the chart or being dictated. Assessment: Initial Case, Edema=None, Color=Normal, Skin = Warm, Dry Right Pulses: Fuad Ped=1, Femoral=2, Radial=2 9:19:10 Left Pulses: Fuad Ped=1, Femoral=2 Neurological: State=Alert, Ox3, PITT Vitals capture started with the following parameters, Patient=Adult, Interval=3 min, Initial Pr gvripi=416 mmHg, 9:25:05 Deflation Rate=5 mmHg, Cuff placed on Left Arm 9:25:17 Reference ECG taken 9:25:41 HR=72 bpm, OSQN=083/82 mmhg, SpO2=97.0 %, Resp=16 B/min 9:28:39 HR=71 bpm, TUCC=500/84 mmhg, SpO2=98 %, Resp=16 B/min 9:31:38 Right Radial and groin(s) prepped with 2% chlorhexidine, and draped after a 3 min. waiting time. 9:31:39 HR=71 bpm, PKBL=245/86 mmhg, SpO2=98 %, Resp=18 B/min 9:34:42 HR=71 bpm, HBUT=898/80 mmhg, SpO2=98.0 %, Resp=18 B/min 9:37:42 HR=72 bpm, VEAV=097/82 mmhg, YwY2=742.0 %, Resp=13 B/min 9:38:14 MD paged 9:39:36 Pressure channel 1 zeroed. 9:40:42 HR=74 bpm, NSCO=828/90 mmhg, SpO2=98.0 %, Resp=9 B/min 9:42:18 MD arrived. 9:43:47 HR=75 bpm, VVCJ=128/82 mmhg, DyM0=242.0 %, Resp=8 B/min 9:46:47 HR=72 bpm, YPDG=343/81 mmhg, MvD3=722.0 %, Resp=8 B/min 9:48:13 2 mg VERSED given in lab by Amish Keyes RN in Right Hand via Peripheral IV. Ordered by Michael Bose. Time Out. Correct patient, correct procedure, correct physician, labs, allergies, and equipment verified with lab tester 9:48:25 team present. Fire risk assesment completed (see hard stop sheet for coding). Time Out Concu rred by MD and individual staff in procedure. 9:49:30 Case Start 9:49:32 50 mcg FENTANYL given in lab by Amish Keyes RN in Right Hand via Peripheral IV. Ordered b Michael Overton. 9:49:32 5 mL 1% XYLOCAINE given in lab by Michael Wilburn in Right Radial via Subcutaneous. 9:49:43 HR=75 bpm, BYHR=910/85 mmhg, SpO2=97.0 %, Resp=8 B/min 9:50:37 Access site was Right Radial Artery . A SHEATH, FR6 TRANSRADIAL SLENDER 10CM FR 6 was advanced into the Radial (right) using the Perc utaneous 9:50:49 technique. 5 mL (Bolus) RADIAL COCKTAIL given in lab by Michael Wilburn via Radial. Using [Solution Na me]. Reason: Ntg 9:50:58 200mcg Verapamil 2.5mg Heparin 2800U. A JR 4.0 INFINITI CATHETER FR 5 was advanced over a wire. OMNIPAQUE, 350 MG, 150ML 150ML was us ed for 9:52:29 injections. 9:52:47 HR=75 bpm, QCEB=538/68 mmhg, SpO2=98.0 %, Resp=11 B/min Recorded Pressure: LV, HR=74, Condition=Condition 1 9:53:56 (Left Ventricle) LV 94/2/6 Recorded Pressure: LV, Ao, HR=82, Condition=Condition 1 9:54:22 (Left Ventricle) LV 95/1/6, (Aorta) Ao 97/66/80 Recorded Pressure: Ao, HR=75, Condition=Condition 1 9:54:53 (Aorta) Ao 84/59/70 9:55:38 The RCA was injected and visualized at various angles. OMNIPAQUE, 350 MG, 150ML 150ML used. 9:55:45 HR=79 bpm, EMQC=710/71 mmhg, SpO2=96 %, Resp=15 B/min After removing the current catheter a JL 3.5 INFINITI CATHETER FR 5 was advanced over a WIRE, E XCHANGE 260CM 9:56:24 3MMJ 260CM. 9:58:48 HR=77 bpm, XTXQ=196/64 mmhg, SpO2=93.0 %, Resp=14 B/min 9:58:55 The LCA was injected and visualized at various angles. OMNIPAQUE, 350 MG, 150ML 150ML used. 10:01:46 HR=73 bpm, RKJM=040/72 mmhg, SpO2=95.0 %, Resp=14 B/min After removing the current catheter a EBU 3.5 Z2 GUIDE CATHETER FR 6 was advanced over a WIRE, EXCHANGE 10:03:50 260CM 3MMJ 260CM. 10:04:46 HR=71 bpm, CBHU=501/75 mmhg, SpO2=95.0 %, Resp=11 B/min 10:05:08 4400 units HEPARIN given in lab by Amish Keyes, RN in Right Hand via Peripheral IV. Order ed by Michael Wilburn 10:07:50 HR=70 bpm, EOED=648/67 mmhg, SpO2=95.0 %, Resp=12 B/min 10:10:47 HR=71 bpm, PMCX=688/69 mmhg, SpO2=96 %, Resp=14 B/min After removing the current catheter a JL 3.5 GUIDE CATHETER FR 6 was advanced over a WIRE, EXCH LIBERTAD 260CM 10:11:25 3MMJ 260CM. 10:11:58 Activated Clotting Time Drawn 10:13:49 HR=65 bpm, QPRY=149/70 mmhg, SpO2=97.0 %, Resp=13 B/min 10:15:53 A WIRE, BALANCE MIDDLEWEIGHT 190CM 190CM was inserted via Radial (right). 10:16:37 ACT (Normal Range 90-180) = 265 10:16:45 HR=65 bpm, CLMA=728/72 mmhg, SpO2=98.0 %, Resp=11 B/min 10:17:32 2000 units HEPARIN given in lab by Amish Keyes RN in Right Hand via Peripheral IV. Order ed by Michael Wilburn 10:19:47 HR=63 bpm, UKAB=852/69 mmhg, SpO2=97.0 %, Resp=12 B/min A BALLOON, 2.0 X 15MM EUPHORA 15MM was inserted over WIRE, BALANCE MIDDLEWEIGHT 190CM 190CM via the 10:20:23 Radial (right). A BALLOON, 2.0 X 15MM EUPHORA 15MM over a WIRE, BALANCE MIDDLEWEIGHT 190CM 190CM in the LAD Mid was 10:21:32 inflated using a 30 LUCAS INDEFLATOR at 8 lucas for 19 sec. 10:22:47 HR=59 bpm, AJXV=488/70 mmhg, SpO2=97.0 %, Resp=10 B/min 10:23:31 Balloon Removed. 10:25:46 HR=66 bpm, PFAD=737/71 mmhg, SpO2=97.0 %, Resp=18 B/min A STENT, 2.0 22MM ELIZABETH 2.0 X 22MM was advanced through a JL 3.5 GUIDE CATHETER FR 6 over a WIRE , BALANCE 10:27:05 MIDDLEWEIGHT 190CM 190CM. 10:28:50 HR=56 bpm, LKUR=809/61 mmhg, SpO2=99.0 %, Resp=16 B/min A STENT, 2.0 22MM ELIZABETH 2.0 X 22MM was deployed using a 30 LUCAS INDEFLATOR at 12 atmospheres for 30 seconds 10:28:53 in the LAD Mid. 10:29:32 Delivery device removed A BALLOON, 2.0 X 12MM NC EUPHORA 12MM was inserted over WIRE, BALANCE MIDDLEWEIGHT 190CM 190CM via 10:31:47 the Radial (right). 10:31:48 HR=64 bpm, MECG=581/70 mmhg, SpO2=98 %, Resp=15 B/min A BALLOON, 2.0 X 12MM NC EUPHORA 12MM over a WIRE, BALANCE MIDDLEWEIGHT 190CM 190CM in the LAD Mid 10:32:17 was inflated using a 30 LUCAS INDEFLATOR at 14 lucas for 14 sec. A BALLOON, 2.0 X 12MM NC EUPHORA 12MM over a WIRE, BALANCE MIDDLEWEIGHT 190CM 190CM in the LAD Mid 10:32:44 was inflated using a 30 LUCAS INDEFLATOR at 20 lucas for 16 sec. 10:34:02 Balloon Removed. 10:34:48 HR=65 bpm, JYHB=251/65 mmhg, SpO2=97 %, Resp=15 B/min A BALLOON, 2.25 X 12MM NC EUPHORA 12MM was inserted over WIRE, BALANCE MIDDLEWEIGHT 190CM 190CM via 10:35:30 the Radial (right). A BALLOON, 2.25 X 12MM NC EUPHORA 12MM over a WIRE, BALANCE MIDDLEWEIGHT 190CM 190CM in the LAD Mid 10:35:37 was inflated using a 30 LUCAS INDEFLATOR at 14 lucas for 10 sec. A BALLOON, 2.25 X 12MM NC EUPHORA 12MM over a WIRE, BALANCE MIDDLEWEIGHT 190CM 190CM in the LAD Mid 10:36:10 was inflated using a 30 LUCAS INDEFLATOR at 16 lucas for 16 sec. 10:36:37 Balloon Removed. 10:37:15 100 mcg NTG (IC) given in lab by Michael Wilburn in Right Radial via Intra-coronary. 10:37:49 HR=78 bpm, NIBP=94/61 mmhg, SpO2=96.0 %, Resp=14 B/min 10:40:17 Wire removed 10:40:35 Catheter was removed 10:41:19 Case End (Physician broke scrub) 10:41:23 600 mg PLAVIX given in lab by Amish Keyes RN via Oral. Ordered by Michael Wilburn 10:41:24 HR=63 bpm, OCUY=996/56 mmhg, SpO2=96.0 %, Resp=13 B/min Radial Compression Device Used. 12 mLs of air placed in BAND, RADIAL COMPRESSION TR SHORT 24 24 CM. Affected 10:43:46 hand 98 % O2 saturation. 10:43:47 HR=62 bpm, RHYT=481/70 mmhg, SpO2=99 %, Resp=11 B/min 10:43:55 No case complications noted. 10:43:57 Cine recording checked. 10:43:57 Holding Area notified of successful intervention. 10:43:59 Bedside Report will be given. 10:43:59 Implantable Device card placed in patient's chart. 10:47:50 Vitals capture stopped. End Study - Contrast Media Used In Study Contrast Total Opened (mL) Total Used (mL) Total Wasted (mL) Omnipaque 150 100 50 End Study - Maximum Contrast Load Max Contrast Load (mL) 404.0 End Study - Radiation Exposure Fluoro Time (minutes) 11.5 End Study - Patient Disposition Complications Transferred To Interventional Outcome No Telemetry Bed successful
[2018-02-16] MEDS ORDERED: Misc Info for Pharmacy OTHER STA (10:54)
--- NOTE | 2018-02-16 11:26 | TR ---
Date Performed: 02/15/2018 Time Performed: 14:55:25 DOCTOR: Robert Briscoe DRUG LIST: CLINICAL HISTORY: REASON FOR TEST: Chest pain REASON FOR ENDING: OBSERVATION: CONCLUSION: Abebe protocol completed. Stopped sec to reaching target heart rate and leg fagitue. Maximum VY=719 Max HR Achieved=86.0% Maximum SG=748/68 Total Exercise Time=6:08. No reprod chest dis comfort. Fair exercise tolerance. Infrequent PVC. Horizontal st segments inferior. Normal bp response . Recovery quick and unremarkable. Nuclear images pending. COMMENTS:
[2018-02-16] MEDS ORDERED: Iohexol 350 MG/ML 100 ML Vial (for Cath Lab) IVCONTRAST ONE (12:57)
--- NOTE | 2018-02-16 15:07 | P.HPFP ---
History of Present Illness Primary Care Physician: No Carey MD, R3 Chief Complaint: Chest pain History of Present Illness: 57-year-old male with history of diabetes, hypertension, hyperlipidemia, chronic back pain presented to the ER on 02/14 with chest discomfort. Patient had some left-sided pain as well as pressure. He was initially admitted to the chest pain center for ACS workup. Patient remained stable, but was recommended for stress test. Patient stated he cannot tolerate exercise stress test, so nuclear stress test was performed. Nuclear stress test showed reversible ischemia and cardiac catheter was performed today with placement of stent. Patient was consulted for medical management, she is a patient of Dr. Carey the [facility] clinic. Today, patient is status post catheterization. Denies any chest pain or shortness of breath. States he has smoked in the past, but not currently. Denies any family history of coronary artery disease. Does have history of CVA as well. - Diagnosis (1) Ischemic heart disease (2) Hypertension (3) Diabetes (4) Chronic back pain Review of Systems Constitutional: Denies chills, Denies fatigue, Denies fever(s), Denies headache( s) Eyes: Denies blurry vision, Denies irritation Ears, Nose, Mouth, and Throat: Denies abnormal hearing, Denies sinus pain Cardiovascular: Denies chest pain, Denies chest pain at rest, Denies irregular heart rhythm, Denies lightheadedness, Denies shortness of breath Respiratory: Denies cough, Denies wheezing Gastrointestinal: Denies abdominal pain, Denies difficulty swallowing Genitourinary: Denies urinary frequency, Denies urinary hesitancy Musculoskeletal: Denies abnormal walking, Denies back pain, Denies body aches Skin/Breast: Denies new lesions Neurologic: Denies abnormal movements, Denies abnormal speech, Denies behavioral changes, Denies dizziness, Denies fainting, Denies frequent falls, Denies loss of vision, Denies memory loss, Denies other visual disturbances, Denies seizure-like activity Psychiatric: Denies depression [facility] - History History Provided By: Patient - Medical History Medical History: Medical History (Last Reviewed 02/14/18 @ 12:58 by KRISTYN Walters) TIA (transient ischemic attack) (Acute) CVA (cerebral vascular accident) (Acute) Hypercholesteremia (Acute) Spinal stenosis (Acute) Chronic back pain (Chronic) Hypertension (Acute) Diabetes (Acute) - Tobacco History Second Hand Smoke Exposure: No Tobacco Use In Past 30 Days: No Smoking Status: Former smoker Tobacco Type: Cigarettes - Alcohol History How Often Do You Have a Drink Containing Alcohol: Monthly or less - Substance Use History Substance History: No History of Abuse - Travel History Recent Travel in the [facility] Within the Last 8 Weeks: No Recent Travel Out of the Country Within the Last 8 Weeks: No Medications and Allergies Active Medications: Active Medications Acetaminophen (Tylenol) 500 mg PO Q6H PRN PRN Reason: pain scale 1-5 Hydrocodone Bitart/Acetaminophen ([place] 7.5/325) 1 tab PO Q6H PRN PRN Reason: pain scale 6-10 Albuterol (Duoneb Neb (Prn)) 1 ampul NEB Q4HR NEB PRN PRN Reason: SHORTNESS OF BREATH/WHEEZING Amlodipine Besylate (Norvasc) 5 mg PO DAILY [facility] Last Admin: 02/16/18 09:03 Dose: 5 mg Aspirin (Ecotrin) 81 mg PO DAILY [facility] Atorvastatin Calcium (Lipitor) 40 mg PO DAILY [facility] Last Admin: 02/16/18 09:03 Dose: 40 mg Clonidine HCl (Catapres) 0.1 mg PO Q6H PRN PRN Reason: SBP >165 OR DBP > 110 Clopidogrel Bisulfate (Plavix) 75 mg PO DAILY [facility] Docusate Sodium (Colace) 100 mg PO BID [facility] Last Admin: 02/16/18 09:03 Dose: 100 mg Insulin Human Regular (Novolin R Correctional Sugar Inj) 0 units SQ ACHS [facility]; Protocol Last Admin: 02/16/18 11:24 Dose: 3 units Metoprolol Tartrate (Lopressor) 12.5 mg PO BID [facility] Ondansetron HCl (Zofran Inj) 4 mg IV.PUSH Q6H PRN PRN Reason: NAUSEA Pantoprazole Sodium (Protonix) 40 mg PO DAILY [facility] Last Admin: 02/16/18 09:04 Dose: 40 mg Sodium Chloride (Ns Flush) 2 ml IV.FLUSH PRN PRN PRN Reason: FLUSH AFTER USING IV ACCESS Sodium Chloride (Ns Flush) 2 ml IV.FLUSH BID [facility] Allergies Allergy/AdvReac Type Severity Reaction Status Date / Time lactose Allergy Severe LACTOSE Verified 02/14/18 11:00 INTOLERANT Home Medications Medication Instructions Recorded Confirmed Type Lactobacillus acidoph-pectin 1 cap PO TIDWM 02/02/18 02/14/18 History [Acidophilus-Pectin] amlodipine 5 mg PO DAILY 02/02/18 02/14/18 History atorvastatin 40 mg PO DAILY 02/02/18 02/14/18 History metformin 500 mg PO BID 02/02/18 02/14/18 History Exam Vital signs: Vital Signs 02/15/18 18:03 02/15/18 19:18 02/15/18 20:00 Temperature 98.6 F Pulse Rate 87 87 Respiratory Rate 16 17 Blood Pressure 125/77 112/75 Pulse Oximetry 99 97 98 02/15/18 23:20 02/16/18 04:00 02/16/18 07:29 Temperature 98.8 F 98.7 F 98.3 F Pulse Rate 77 75 75 Respiratory Rate 17 16 18 Blood Pressure 102/68 115/71 123/77 Pulse Oximetry 95 95 96 02/16/18 08:00 02/16/18 11:05 02/16/18 12:00 Temperature 98.2 F Pulse Rate 73 73 Respiratory Rate 20 20 Blood Pressure 117/83 Pulse Oximetry 100 100 02/16/18 13:00 02/16/18 14:00 Temperature Pulse Rate 84 72 Respiratory Rate Blood Pressure Pulse Oximetry Intake & Output 02/15/18 02/16/18 02/16/18 18:59 06:59 18:59 Intake Total 720 / 720 Output Total 520 / 520 Balance 200 / 200 Intake: Oral 720 / 720 Output: Urine 520 / 520 Other: Date of Last Bowel Movement 02/11/18 02/10/18 02/10/18 # Bowel Movements 0 Narrative: GENERAL: lying in bed, NAD SKIN: Warm and dry. HEAD: Atraumatic. Normocephalic. EYES: Pupils equal and round. No scleral icterus. No injection or drainage. ENT: No nasal bleeding or discharge. Mucous membranes pink and moist. NECK: Trachea midline. No JVD. CARDIOVASCULAR: Regular rate and rhythm. RESPIRATORY: No accessory muscle use. Clear to auscultation. Breath sounds equal bilaterally. GASTROINTESTINAL: Abdomen soft, non-tender, nondistended. Hepatic and splenic margins not palpable. MUSCULOSKELETAL: Extremities without clubbing, cyanosis, or edema. No obvious deformities. NEUROLOGICAL: Awake and alert. No obvious cranial nerve deficits. Motor grossly within normal limits. Normal speech. PSYCHIATRIC: Appropriate mood and affect; insight and judgment normal. Results - Labs Result diagrams: 02/14/18 11:20 02/14/18 11:20 Abnormal lab results 02/15/18 02/16/18 02/16/18 Range/Units 20:33 07:55 11:16 POC Glucose 160 H 200 H 233 H (68-110) mg/dl - Imaging Impressions Myocardial Perfusion Scan Nuc Med 02/15/18 00:00 CONCLUSION: 1. Small reversible perfusion defects are suspected as described above. 2. The ejection fraction is normal. Caprini VTE Risk Assessment Caprini VTE Risk Assessment: No/Low Risk (score <= 1) Caprini Risk Assessment Model: Point Value = 1 Point Value = 2 Point Value = 3 Point Value = 5 Age 41-60 Minor surgery BMI > 25 kg/m2 Swollen legs Varicose veins or History of unexplained or recurrent spontaneous Oral contraceptives or hormone replacement Sepsis (< 1 month) Serious lung disease, including pneumonia (< 1 month) Abnormal pulmonary function Acute myocardial infarction Congestive heart failure (< 1 month) History of inflammatory bowel disease Medical patient at bed rest Age 61-74 Arthroscopic surgery Major open surgery (> 45 min) Laparoscopic surgery (> 45 min) Malignancy Confined to bed (> 72 hours) Immobilizing plaster cast Central venous access Age >= 75 History of VTE Family history of VTE Factor V Leiden Prothrombin [id number] Lupus anticoagulant Anticardiolipin antibodies Elevated serum homocysteine Heparin-induced thrombocytopenia Other congenital or acquired thrombophilia Stroke (< 1 month) Elective arthroplasty Hip, pelvis, or leg fracture Acute spinal cord injury (< 1 month) Prophylaxis Regimen: Total Risk Factor Score Risk Level Prophylaxis Regimen 0-1 Low Early ambulation 2 Moderate Order ONE of the following: *Sequential Compression Device (SCD) *Heparin 5000 units SQ BID 3-4 Higher Order ONE of the following medications: *Heparin 5000 units SQ TID *Enoxaparin/Lovenox 40 mg SQ daily (WT < 150 kg, CrCl > 30 mL/min) *Enoxaparin/Lovenox 30 mg SQ daily (WT < 150 kg, CrCl > 10-29 mL/min) *Enoxaparin/Lovenox 30 mg SQ BID (WT < 150 kg, CrCl > 30 mL/min) AND/OR *Sequential Compression Device (SCD) 5 or more Highest Order ONE of the following medications: *Heparin 5000 units SQ TID (Preferred with Epidurals) *Enoxaparin/Lovenox 40 mg SQ daily (WT < 150 kg, CrCl > 30 mL/min) *Enoxaparin/Lovenox 30 mg SQ daily (WT < 150 kg, CrCl > 10-29 mL/min) *Enoxaparin/Lovenox 30 mg SQ BID (WT < 150 kg, CrCl > 30 mL/min) AND *Sequential Compression Device (SCD) Assessment and Plan - Assessment (1) Ischemic heart disease Code(s): I25.9 - Chronic ischemic heart disease, unspecified Status: Acute Plan: Patient presented with chest pain and ACS workup was ordered. Patient underwent nuclear stress test on 02/15, which showed reversible perfusion defect. Cardiology consulted-appreciate recs -Underwent cardiac cath and stent placement 02/16 -Started on Plavix & metoprolol -Continue aspirin & statin (2) Hypertension Code(s): I10 - Essential (primary) hypertension Status: Acute Plan: Patient with history of hypertension. Continue home amlodipine Clonidine as needed (3) Diabetes Code(s): E11.9 - Type 2 diabetes mellitus without complications Status: Acute Plan: History of diabetes. On metformin at home -Hold metformin inpatient -Sliding scale insulin -Regular accuchecks (4) Chronic back pain Code(s): M54.9 - Dorsalgia, unspecified; G89.29 - Other chronic pain Status: Chronic Plan: History of chronic back pain, takes naproxen at home -Started on [place] while in the hospital. - Assessment and Plan 57-year-old with history of diabetes, CVA, hypertension, chronic back pain presented with chest pain with ACS workup. Stress test was performed which showed reversible disease and cardiac cath was performed. Patient is status post stent placement. Currently managing medical issues while inpatient. 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
[2018-02-16] MEDS ORDERED: Polyethylene Glycol 3350 17 GM Packet PO PRN (18:58)
[2018-02-16] MEDS ORDERED: Bisacodyl 10 MG Supp RECTAL PRN (18:59)
[2018-02-16] MEDS: Metoprolol Tartrate 25 MG Tablet PO SCH (20:57)
--- NOTE | 2018-02-16 23:21 | MB ---
cc: Michael Wilburn DO DATE: 02/16/2018 REASON FOR CONSULTATION: Abnormal stress test. HISTORY OF PRESENT ILLNESS: Vasyl Freeman is a pleasant 57-year-old male who presented to [facility] due to chest discomfort. 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 EMS was called and brought him to the emergency room. He ruled out for myocardial infarction but was admitted to the chest pain center and underwent nuclear stress testing. Nuclear stress test was done showing areas of ischemia, and so he was recommended consideration of cardiac catheterization. In seeing him, he is currently hemodynamically stable without chest pain or shortness of breath. PAST MEDICAL HISTORY: 1. History of TIA/CVA. 2. Hyperlipidemia. 3. Spinal stenosis. 4. Chronic back pain. 5. Hypertension. 6. Diabetes mellitus. PAST SURGICAL HISTORY: Denies. ALLERGIES: LACTOSE. MEDICATIONS: 1. Norvasc 5 mg daily. 2. Lipitor 40 mg daily. 3. Metformin 500 mg b.i.d. 4. Aspirin 81 mg daily. 5. Naproxen 500 mg b.i.d. 6. Colace 100 mg b.i.d. 7. Previously on lisinopril, but it was stopped by his primary care physician as there was some concern for him having tingling in his right arm. FAMILY HISTORY: He denies premature coronary artery disease or sudden cardiac within the family. SOCIAL HISTORY: The patient has a history of smoking but quit a number of years ago. He denies alcohol or drug abuse. REVIEW OF SYSTEMS: Fourteen systems were reviewed including osteopathic. Pertinent positives and negatives above, otherwise negative. PHYSICAL EXAMINATION: VITAL SIGNS: Temperature 98.3, heart rate 75, blood pressure 123/77, respirations 18, pulse oximetry 96% on room air. GENERAL: The patient appears well, in no acute distress. Alert, awake, and oriented x3. HEENT: Extraocular muscles intact. Mucous membranes moist. NECK: Supple. No JVD at 45 degrees. No carotid bruits heard bilaterally. Carotid upstroke is brisk in nature. HEART: Regular rate and rhythm. Positive first and second heart sounds with no noted murmurs, gallops, or rubs. LUNGS: Clear to auscultation bilaterally. No wheezes, rales, or rhonchi. ABDOMEN: Soft, nontender, nondistended. No organomegaly noted. EXTREMITIES: No clubbing, cyanosis, or edema. Femoral and distal pulses are intact bilaterally. NEUROLOGIC: No focal deficits. SKIN: Warm, dry, and intact. OSTEOPATHIC: No kyphoscoliosis, lordosis, or paraspinal tender points. LABORATORY DATA: Hemoglobin 13.5, hematocrit 39.6, platelets 175. Potassium 3.7, BUN 16, creatinine 0.97. Troponin negative x3. Electrocardiogram (02/14/2018 at 2204): Sinus rhythm with no acute ST-T wave changes. IMPRESSION: 1. Abnormal stress test. 2. Chest pain concerning for coronary insufficiency. 3. Hypertension. 4. Diabetes mellitus. 5. History of transient ischemic attack/cerebrovascular accident. 6. Hyperlipidemia. RECOMMENDATIONS: 1. Mr. Freeman presented with chest pain concerning for coronary insufficiency. 2. His stress test was read as small reversible defect of the inferior wall as well as a small reversible defect of the anterolateral wall and overall low risk stress test. In review of the images, I disagree with the reading that he has at least a moderate area of ischemia from the anterior apical and inferior portions, and this should be at least an intermediate risk stress test. 3. Because of an intermediate-risk stress test as well as the chest pain and his significant risk factors, I feel that he should undergo cardiac catheterization. Risks, benefits, and alternatives were explained to him, and he consents to such. 4. Further recommendations will be made based on the hospital course. Thank you for allowing me to see Vasyl Freeman. If there are any questions, please do not hesitate to call. DO JASWINDER Young/noe , 10:20 PM , 10:31 PM
--- NOTE | 2018-02-16 23:33 | MA ---
cc: Michael Wilburn DO DATE: 02/16/2018 PROCEDURE PERFORMED: Left heart catheterization, coronary angiogram, moderate sedation 67 minutes, Alfredo drug-eluting stent (2 x 22) to the mid left anterior descending. PREPROCEDURE DIAGNOSES: Chest pain concerning for coronary insufficiency, abnormal stress test (intermediate risk). POSTPROCEDURE DIAGNOSES: Coronary artery disease, status post Alfredo drug-eluting stent (2 x 22) to the mid left anterior descending. MEDICATIONS: Versed 0.5 mg, fentanyl 50 mcg, heparin 9200 units, verapamil 2.5 mg, nitro 400 mcg, Plavix 600 mg. CONTRAST USED: 100 mL. FLUOROSCOPY: 11.5 minutes. MODERATE SEDATION: 67 minutes. FRAILTY SCORE: 2. ESTIMATED BLOOD LOSS: 10 mL. PROCEDURAL SUMMARY: Vasyl Freeman is a pleasant 57-year-old male who presented to [facility] Emergency Room due to chest pain while working. He underwent a stress test which was read as low risk, but in reviewing the images, he had at least a moderate area of the anterior apical and inferior babcock, and because of this, he was recommended cardiac catheterization. Risks, benefits and alternatives were explained to him and he consented to such. He was brought to the lab and prepped in the usual sterile fashion. The right radial artery was accessed using a modified Seldinger technique and placement of a 5/6 Monegasque slender sheath. This was easily aspirated and flushed. A JR4 was advanced over a J-wire to the ascending aorta and across the aortic valve for measurement of left ventricular pressure. This was pulled back across the aortic valve showing no significant gradient of aortic stenosis. JR4 was used for selective angiography of the right coronary artery system. This was exchanged out for a JL3.5, which was used for selective angiography of the left coronary artery system. Please see notes below for intervention. FINDINGS: LEFT MAIN: Normal size vessel with 30% disease. It trifurcates into an LAD, ramus and circumflex. LEFT ANTERIOR DESCENDING: Moderate size vessel with a long tubular 70% lesion in the mid portion. It gives off 1 small diagonal with no significant disease. RAMUS: Small to moderate size vessel which has a medial and lateral branch. Medial branch is overall significantly small and does have a 90% lesion in it. The lateral branch has a 60% to 70% lesion in the mid portion. LEFT CIRCUMFLEX: Small vessel with diffuse 50% disease. RIGHT CORONARY ARTERY: Large vessel with 30% disease in the mid portion. It supplies a PDA as well as multiple posterolateral branches. LEFT VENTRICULAR END-DIASTOLIC PRESSURE: 6. INTERVENTION: As Mr. Freeman's ischemia appeared to be anterior, apical and inferior and his LAD had a lesion in the mid portion that appeared to cover these areas as it was type 3, I felt that it was reasonable to intervene. A JL3.5 guide was engaged in the left main. The patient was given heparin as an anticoagulant. A BMW wire was advanced into the distal portion of the LAD. A compliant balloon (2 x 15) was used to predilate the lesion. An [place] drug-eluting stent (2 x 22) was placed over the lesion and inflated. This was postdilated with a noncompliant balloon (2 x 12) and a second noncompliant balloon (2.25 x 12) in the proximal portion. Final angiogram showed a well-opposed stent with no perforations or dissections. Wire was removed. Guide was removed. Radial band was placed over the arteriotomy site for hemostasis. The patient was loaded with 600 mg of heparin. 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 INTERVENTIONAL DATA: Vessel mid LAD, lesion length 18, pre-TERESA 3, post-TERESA 3, post-stenosis zero. IMPRESSION: 1. Coronary artery disease/unstable angina, status post Alfredo drug-eluting stent (2 x 22) to the mid left anterior descending. 2. Abnormal stress test (intermediate risk). 3. Hypertension. 4. Diabetes mellitus. 5. Hyperlipidemia. 6. History of transient ischemic attack/cerebrovascular accident. RECOMMENDATIONS: 1. Mr. Freeman underwent PCI as above and he will be recommended aspirin indefinitely and Plavix for at least 12 months. 2. We will continue him on his statin therapy. 3. We will add beta efrain therapy to his current regimen. 4. He previously was taken off lisinopril for what appeared to be tingling in his right arm, although unsure if this is the true cause. We will . 5. We will check a 2-D echo to look at his overall left ventricular function, cardiac structure and possible valvulopathies. 6. If stable in the morning, will be discharged home. Overall, his medial portion of his ramus is overall small and this will be treated medically. He does have another lesion in the lateral portion of his ramus and this will be treated medically. If he continues to have problems, this will be planned for intervention. Thank you for allowing me to see Vasyl Freeman. IF there are any questions, please do not hesitate to call. DO JASWINDER Young/tiny , 10:30 PM , 10:43 PM
[2018-02-17] MEDS: Metoprolol Tartrate 25 MG Tablet PO SCH (08:17)
[2018-02-17] MEDS: Docusate Sodium 100 MG Capsule PO SCH (08:17)
[2018-02-17] MEDS: amLODIPine 5 MG Tablet PO SCH ×3 (08:17→11:06)
[2018-02-17] MEDS: Insulin NovoLIN Regular Correctional Sugar Inj SQ SCH ×2 (08:18→11:24)
[2018-02-17] MEDS ORDERED: Lisinopril 5 MG Tablet PO SCH (09:00)
[2018-02-17 09:30] VITALS: RESP 18
--- NOTE | 2018-02-17 09:45 | P.PNFP ---
Subjective Interval history: Patient seen and examined this morning. No acute events overnight. Patient denies any new complaints this morning. Denies any chest pain overnight. No shortness of breath or leg pain. States he is constipated and has not had a bowel movement for several days. Passing gas and tolerating oral intake. <Jason Laws Joseph - 02/17/18 09:44> Results - Labs Result diagrams: 02/17/18 10:03 02/17/18 10:08 <Lizabeth Lui - 02/23/18 15:55> Abnormal lab results 02/16/18 02/16/18 02/16/18 Range/Units 11:16 17:43 20:55 POC Glucose 233 H 250 H 183 H (68-110) mg/dl 02/17/18 Range/Units 07:47 POC Glucose 189 H (68-110) mg/dl <Jason Laws Joseph - 02/17/18 09:44> Physical Exam Vital signs: Vital Signs 02/16/18 11:05 02/16/18 12:00 02/16/18 13:00 Temperature 98.2 F Pulse Rate 73 84 Respiratory Rate 20 Blood Pressure 117/83 Pulse Oximetry 100 100 02/16/18 14:00 02/16/18 15:00 02/16/18 16:00 Temperature Pulse Rate 72 76 70 Respiratory Rate 16 Blood Pressure 130/94 H Pulse Oximetry 100 02/16/18 17:00 02/16/18 18:00 02/16/18 19:00 Temperature Pulse Rate 72 70 78 Respiratory Rate Blood Pressure Pulse Oximetry 02/16/18 19:40 02/16/18 20:00 02/16/18 21:00 Temperature 98.5 F Pulse Rate 74 71 70 Respiratory Rate 18 Blood Pressure 101/65 Pulse Oximetry 99 02/16/18 22:00 02/16/18 23:00 02/16/18 23:39 Temperature 98.3 F Pulse Rate 74 70 70 Respiratory Rate 16 Blood Pressure 97/66 L Pulse Oximetry 98 02/17/18 00:00 02/17/18 01:00 02/17/18 02:00 Temperature Pulse Rate 78 68 76 Respiratory Rate Blood Pressure Pulse Oximetry 02/17/18 03:00 02/17/18 03:31 02/17/18 04:00 Temperature 98.1 F Pulse Rate 75 78 73 Respiratory Rate 17 Blood Pressure 110/79 Pulse Oximetry 99 02/17/18 05:00 02/17/18 06:00 02/17/18 07:00 Temperature 98.1 F Pulse Rate 75 69 75 Respiratory Rate 18 Blood Pressure 120/78 Pulse Oximetry 100 02/17/18 08:00 02/17/18 09:00 Temperature Pulse Rate 80 82 Respiratory Rate Blood Pressure Pulse Oximetry Intake & Output 02/16/18 02/17/18 02/17/18 18:59 06:59 18:59 Intake Total 580 / 580 360 / 360 Output Total 600 / 600 200 / 200 Balance -20 / -20 160 / 160 Weight 72.5 kg Intake: Oral 580 / 580 360 / 360 Output: Urine 600 / 600 200 / 200 Other: # Voids 2 2 Date of Last Bowel Movement 02/10/18 02/10/18 02/10/18 # Bowel Movements 0 <IssacnateJason Joseph - 02/17/18 09:44> Narrative: GENERAL: sitting up in bed, NAD, eating breakfast SKIN: Warm and dry. CARDIOVASCULAR: Regular rate and rhythm. RESPIRATORY: No accessory muscle use. Clear to auscultation. Breath sounds equal bilaterally. GASTROINTESTINAL: Abdomen soft, non-tender, nondistended. BS+ MUSCULOSKELETAL: Extremities without clubbing, cyanosis, or edema. Right forearm /hand in splint from cath NEUROLOGICAL: Awake and alert. No obvious cranial nerve deficits. Motor grossly within normal limits. Normal speech. PSYCHIATRIC: Appropriate mood and affect; insight and judgment normal. <IssacnateJason Joseph - 02/17/18 09:44> Assessment and Plan - Assessment (1) Ischemic heart disease Code(s): I25.9 - Chronic ischemic heart disease, unspecified Status: Acute (2) Hypertension Code(s): I10 - Essential (primary) hypertension Status: Acute (3) Diabetes Code(s): E11.9 - Type 2 diabetes mellitus without complications Status: Acute (4) Chronic back pain Code(s): M54.9 - Dorsalgia, unspecified; G89.29 - Other chronic pain Status: Chronic (5) Constipation Code(s): K59.00 - Constipation, unspecified Status: Acute <Lizabeth Lui - 02/23/18 15:55> (1) Ischemic heart disease Code(s): I25.9 - Chronic ischemic heart disease, unspecified Status: Acute Plan: Patient presented with chest pain and ACS workup was ordered. Patient underwent nuclear stress test on 02/15, which showed reversible perfusion defect. Cardiology consulted-appreciate recs -Underwent cardiac cath and stent placement 02/16 -Started on Plavix & metoprolol -Awaiting cardiology clearance for d/c -Continue aspirin & statin (2) Hypertension Code(s): I10 - Essential (primary) hypertension Status: Acute Plan: Patient with history of hypertension. Continue home amlodipine Clonidine as needed (3) Diabetes Code(s): E11.9 - Type 2 diabetes mellitus without complications Status: Acute Plan: History of diabetes. On metformin at home -Hold metformin inpatient -Sliding scale insulin -Regular accuchecks (4) Chronic back pain Code(s): M54.9 - Dorsalgia, unspecified; G89.29 - Other chronic pain Status: Chronic Plan: History of chronic back pain, takes naproxen at home -Started on [place] while in the hospital. (5) Constipation Code(s): K59.00 - Constipation, unspecified Status: Acute Plan: No bowel movement for several days. Passing gas. Is on milk of magnesia and Colace Given miralax today as well If no BM, will try suppository <Jason Laws - 02/17/18 09:40> - Assessment and Plan 57-year-old with history of diabetes, CVA, hypertension, chronic back pain presented with chest pain with ACS workup. Stress test was performed which showed reversible disease and cardiac cath was performed. Patient is status post stent placement. Currently managing medical issues while inpatient. Fluids: Tolerating PO Electrolytes: wnl, monitor and replace PRN Nutrition: heart healthy diet DVT ppx: Holding post-op, early ambulation <Jason Laws - 02/17/18 09:44> - Attending Attestation The exam, history, and the medical decision-making described in the above note were completed with the assistance of the resident physician. I reviewed and agree with the findings presented. I attest that I had a [id number] encounter with the patient on the same day, and personally performed and documented my assessment and findings in the medical record. He is doing very well and able to walk in the [place] without pain or problems. He is very concerned about going back to work and what could happen. 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 use: without group home use Diabetes mellitus complication status: without complication Qualified Code(s): E11.9 - Type 2 diabetes mellitus without complications <Carlos Luion M - Last Filed: 02/23/18 15:55> (2) Hypertension Qualifiers: Hypertension type: essential hypertension Qualified Code(s): I10 - Essential (primary) hypertension (3) Diabetes Qualifiers: Diabetes mellitus type: type 2 Diabetes mellitus group home insulin use: without group home use Diabetes mellitus complication status: without complication Qualified Code(s): E11.9 - Type 2 diabetes mellitus without complications <Jason Laws - Last Filed: 02/17/18 09:40> (2) Hypertension Qualifiers: Hypertension type: essential hypertension Qualified Code(s): I10 - Essential (primary) hypertension (3) Diabetes Qualifiers: Diabetes mellitus type: type 2 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
--- NOTE | 2018-02-17 10:00 | P.PNCA ---
Subjective Interval history: No events overnight No chest pain Still no bowel movement Physical Exam Vital signs: Vital Signs 02/16/18 11:05 02/16/18 12:00 02/16/18 13:00 Temperature 98.2 F Pulse Rate 73 84 Respiratory Rate 20 Blood Pressure 117/83 Pulse Oximetry 100 100 02/16/18 14:00 02/16/18 15:00 02/16/18 16:00 Temperature Pulse Rate 72 76 70 Respiratory Rate 16 Blood Pressure 130/94 H Pulse Oximetry 100 02/16/18 17:00 02/16/18 18:00 02/16/18 19:00 Temperature Pulse Rate 72 70 78 Respiratory Rate Blood Pressure Pulse Oximetry 02/16/18 19:40 02/16/18 20:00 02/16/18 21:00 Temperature 98.5 F Pulse Rate 74 71 70 Respiratory Rate 18 Blood Pressure 101/65 Pulse Oximetry 99 02/16/18 22:00 02/16/18 23:00 02/16/18 23:39 Temperature 98.3 F Pulse Rate 74 70 70 Respiratory Rate 16 Blood Pressure 97/66 L Pulse Oximetry 98 02/17/18 00:00 02/17/18 01:00 02/17/18 02:00 Temperature Pulse Rate 78 68 76 Respiratory Rate Blood Pressure Pulse Oximetry 02/17/18 03:00 02/17/18 03:31 02/17/18 04:00 Temperature 98.1 F Pulse Rate 75 78 73 Respiratory Rate 17 Blood Pressure 110/79 Pulse Oximetry 99 02/17/18 05:00 02/17/18 06:00 02/17/18 07:00 Temperature 98.1 F Pulse Rate 75 69 75 Respiratory Rate 18 Blood Pressure 120/78 Pulse Oximetry 100 02/17/18 08:00 02/17/18 09:00 Temperature Pulse Rate 80 82 Respiratory Rate Blood Pressure Pulse Oximetry Intake & Output 02/16/18 02/17/18 02/17/18 18:59 06:59 18:59 Intake Total 580 / 580 360 / 360 Output Total 600 / 600 200 / 200 Balance -20 / -20 160 / 160 Weight 72.5 kg Intake: Oral 580 / 580 360 / 360 Output: Urine 600 / 600 200 / 200 Other: # Voids 2 2 Date of Last Bowel Movement 02/10/18 02/10/18 02/10/18 # Bowel Movements 0 Narrative: GENERAL: sitting up in bed, NAD, eating breakfast SKIN: Warm and dry. CARDIOVASCULAR: Regular rate and rhythm. RESPIRATORY: No accessory muscle use. Clear to auscultation. Breath sounds equal bilaterally. GASTROINTESTINAL: Abdomen soft, non-tender, nondistended. BS+ MUSCULOSKELETAL: Extremities without clubbing, cyanosis, or edema. Right radial no hematoma, neurovascularly intact NEUROLOGICAL: Awake and alert. No obvious cranial nerve deficits. Motor grossly within normal limits. Normal speech. PSYCHIATRIC: Appropriate mood and affect; insight and judgment normal. Assessment and Plan - Plan 1) CAD/[place]/Abnormal stress test ASA/Plavix Plan for Plavix for at least 12 months Con't statin therapy Added BB therapy Previously had Lisinopril stopped, will attempt to restart Moderate residual CAD Con't medical management 2) 2D echo pending 3) Constipation Per primary team 4) Once echo read, if no problems, cardiovascularly stable for discharge
[2018-02-17 10:32] LABS: Baso % (Auto) 0.4 % (0.0-2.0); Eos # (Auto) 0.1 th/mm3 (0.0-0.4); Eos % (Auto) 1.1 % (0.0-4.0); Hematocrit 38.9 % (39.0-51.0); Hemoglobin 13.3 gm/dL (13.0-17.0); Lymph # (Auto) 0.8 th/mm3 (1.0-4.8); Lymph % (Auto) 13.9 % (9.0-44.0); Mean Corpuscular HGB Conc 34.3 % (32.0-36.0); Mean Corpuscular Hemoglobin 28.5 pg (27.0-34.0); Mean Corpuscular Volume 83.1 fL (80.0-100.0); Mean Platelet Volume 8.4 fL (7.0-11.0); Mono # (Auto) 0.4 th/mm3 (0.0-0.9); Mono % (Auto) 7.1 % (0.0-8.0); Neut # (Auto) 4.4 th/mm3 (1.8-7.7); Neut % (Auto) 77.5 % (16.0-70.0); Platelet Count 164 th/mm3 (150-450); Red Blood Count 4.68 mil/mm3 (4.50-5.90); Red Cell Distribution Width 13.8 % (11.6-17.2); White Blood Count 5.7 th/mm3 (4.0-11.0)
[2018-02-17 11:02] LABS: Calcium 8.9 mg/dL (8.5-10.1); Carbon Dioxide 25.7 meq/L (21.0-32.0); Potassium 4.3 meq/L (3.5-5.1)
[2018-02-17 12:24] VITALS: O2SAT 99
[2018-02-17 15:21] VITALS: BP 123/55; PULSE 79; TEMP 98.4
--- NOTE | 2018-02-17 15:58 | P.DS ---
Date of admission: 02/14/18 12:56 Primary care physician: No Carey MD, R3 Anticipated date of discharge: 02/17/18 Brief History from admission: 57-year-old male with history of diabetes, hypertension, hyperlipidemia, chronic back pain presented to the ER on 02/14 with chest discomfort. Patient had some left-sided pain as well as pressure. He was initially admitted to the chest pain center for ACS workup. Patient remained stable, but was recommended for stress test. Patient stated he cannot tolerate exercise stress test, so nuclear stress test was performed. Nuclear stress test showed reversible ischemia and cardiac catheter was performed today with placement of stent. Patient was consulted for medical management, she is a patient of Dr. Carey the [facility] clinic. Today, patient is status post catheterization. Denies any chest pain or shortness of breath. States he has smoked in the past, but not currently. Denies any family history of coronary artery disease. Does have history of CVA as well. Patient update on day of discharge: Patient seen and examined this morning. No acute events overnight. Patient denies any new complaints this morning. Denies any chest pain overnight. No shortness of breath or leg pain. States he is constipated and has not had a bowel movement for several days. Passing gas and tolerating oral intake. DS: Diagnosis - Discharge Diagnosis (1) Ischemic heart disease Status: Acute (2) Hypertension Status: Acute (3) Diabetes Status: Acute (4) Chronic back pain Status: Chronic (5) Constipation Status: Acute DS: Medications - Discharge Medications Prescriptions: clopidogrel [Plavix] 75 mg PO DAILY #90 tab metoprolol tartrate 12.5 mg PO BID #120 tab DS: Summary Hospital Course: 57-year-old male with history of hypertension, diabetes, CVA presented to the ER with chest pain. ACS workup was negative, and then patient was referred to stress test. Patient underwent nuclear stress test, which showed some reversible areas of ischemia. Patient was brought back to catheter lab and catheter was performed and stent was placed by cardiology. Patient was started on aspirin and Plavix and monitored for the next day. Patient remained stable and echocardiogram was also performed. Patient cleared by cardiology and discharged in stable condition with follow-up with PCP and cardiology. - Time Spent with Patient Total time spent providing and/or coordinating discharge services: Greater than 30 minutes - Quality: VTE Deep Vein Thrombosis/Pulmonary Embolism Present on Admission: No Exam Vital signs: Vital Signs 02/16/18 16:00 02/16/18 17:00 02/16/18 18:00 Temperature Pulse Rate 70 72 70 Respiratory Rate 16 Blood Pressure 130/94 H Pulse Oximetry 100 02/16/18 19:00 02/16/18 19:40 02/16/18 20:00 Temperature 98.5 F Pulse Rate 78 74 71 Respiratory Rate 18 Blood Pressure 101/65 Pulse Oximetry 99 02/16/18 21:00 02/16/18 22:00 02/16/18 23:00 Temperature Pulse Rate 70 74 70 Respiratory Rate Blood Pressure Pulse Oximetry 02/16/18 23:39 02/17/18 00:00 02/17/18 01:00 Temperature 98.3 F Pulse Rate 70 78 68 Respiratory Rate 16 Blood Pressure 97/66 L Pulse Oximetry 98 02/17/18 02:00 02/17/18 03:00 02/17/18 03:31 Temperature 98.1 F Pulse Rate 76 75 78 Respiratory Rate 17 Blood Pressure 110/79 Pulse Oximetry 99 02/17/18 04:00 02/17/18 05:00 02/17/18 06:00 Temperature Pulse Rate 73 75 69 Respiratory Rate Blood Pressure Pulse Oximetry 02/17/18 07:00 02/17/18 08:00 02/17/18 09:00 Temperature 98.1 F Pulse Rate 75 80 82 Respiratory Rate 18 Blood Pressure 120/78 Pulse Oximetry 100 02/17/18 10:00 02/17/18 11:00 02/17/18 12:00 Temperature 98.1 F Pulse Rate 82 83 83 Respiratory Rate 18 Blood Pressure 96/49 L Pulse Oximetry 99 02/17/18 13:00 02/17/18 14:00 02/17/18 15:00 Temperature 98.4 F Pulse Rate 82 78 79 Respiratory Rate 18 Blood Pressure 123/55 L Pulse Oximetry 99 Intake & Output 02/16/18 02/17/18 02/17/18 18:59 06:59 18:59 Intake Total 580 / 580 360 / 360 Output Total 600 / 600 200 / 200 Balance -20 / -20 160 / 160 Weight 72.5 kg Intake: Oral 580 / 580 360 / 360 Output: Urine 600 / 600 200 / 200 Other: # Voids 2 2 Date of Last Bowel Movement 02/10/18 02/10/1802/17/18 # Bowel Movements 0 Narrative: GENERAL: sitting up in bed, NAD, eating breakfast SKIN: Warm and dry. CARDIOVASCULAR: Regular rate and rhythm. RESPIRATORY: No accessory muscle use. Clear to auscultation. Breath sounds equal bilaterally. GASTROINTESTINAL: Abdomen soft, non-tender, nondistended. BS+ MUSCULOSKELETAL: Extremities without clubbing, cyanosis, or edema. Right forearm /hand in splint from cath NEUROLOGICAL: Awake and alert. No obvious cranial nerve deficits. Motor grossly within normal limits. Normal speech. PSYCHIATRIC: Appropriate mood and affect; insight and judgment normal. Results Procedures completed during hospitalization: cardiac cath Labs on day of discharge: Labs from last 24 hours 02/17/18 02/17/18 02/17/18 11:23 10:08 10:03 WBC 5.7 RBC 4.68 Hgb 13.3 Hct 38.9 L MCV 83.1 MCH 28.5 MCHC 34.3 RDW 13.8 Plt Count 164 MPV 8.4 Neut % (Auto) 77.5 H Lymph % (Auto) 13.9 [place] % (Auto) 7.1 Eos % (Auto) 1.1 Baso % (Auto) 0.4 Neut # (Auto) 4.4 Lymph # (Auto) 0.8 L [place] # (Auto) 0.4 Eos # (Auto) 0.1 Baso # (Auto) 0.0 WBC Differential . Differential Comment Auto diff final Sodium 136 Potassium 4.3 Chloride 101 Carbon Dioxide 25.7 Anion Gap 9 BUN 9 Creatinine 1.04 Estimated GFR 89 POC Glucose 223 H Random Glucose 314 H Calcium 8.9 02/17/18 02/16/18 02/16/18 07:47 20:55 17:43 WBC RBC Hgb Hct MCV MCH MCHC RDW Plt Count MPV Neut % (Auto) Lymph % (Auto) [place] % (Auto) Eos % (Auto) Baso % (Auto) Neut # (Auto) Lymph # (Auto) [place] # (Auto) Eos # (Auto) Baso # (Auto) WBC Differential Differential Comment Sodium Potassium Chloride Carbon Dioxide Anion Gap BUN Creatinine Estimated GFR POC Glucose 189 H 183 H 250 H Random Glucose Calcium - Impressions ITS Impressions Chest X-Ray 02/14/18 11:14 CONCLUSION: Negative for acute process. Myocardial Perfusion Scan Nuc Med 02/15/18 00:00 CONCLUSION: 1. Small reversible perfusion defects are suspected as described above. 2. The ejection fraction is normal. Discharge Plan - Discharge Disposition Patient Disposition: 01 Discharge Home - Discharge Condition Condition: Stable - Discharge Order Discharge Orders: Discharge Order (Routine); Ordered 02/17/18 Ordered By: Jason Laws - Discharge Details Anticipated Discharge Date: 02/17/18 - Physicians Team Primary Care Provider: No Caery Attending Provider: Lizabeth Lui Other Providers: [place] Arias MD
--- NOTE | 2018-02-17 16:42 | ECHRPT ---
Indication: CORONARY ATHEROSCLEROSIS CONCLUSIONS Normal left ventricular size. Mild concentric left ventricular hypertrophy. The left ventricular systolic function is normal with an estimated ejection fraction in the range of 60-65%. There is trace tricuspid valve regurgitation. BP: / HR: Rhythm: MEASUREMENTS (Male / Female) Normal Values Technical Quality: 2D ECHO LV Diastolic Diameter PLAX 4.2 cm 4.2 - 5.9 / 3.9 - 5.3 cm LV Systolic Diameter PLAX 2.9 cm IVS Diastolic Thickness 0.7 cm 0.6 - 1.0 / 0.6 - 0.9 cm LVPW Diastolic Thickness 0.9 cm 0.6 - 1.0 / 0.6 - 0.9 cm LV Relative Wall Thickness 0.4 RV Internal Dim ED PLAX 2.8 cm LVOT Diameter 1.7 cm Aortic Root Diameter 2.6 cm LA Systolic Diameter LX 2.9 cm 3.0 - 4.0 / 2.7 - 3.8 cm LV Ejection Fraction MOD 4C 55.4 % LV Ejection Fraction 4C AL 56.4 % M-MODE Aortic Root Diameter MM 2.8 cm LA Systolic Diameter MM 2.9 cm LA Ao Ratio MM 1.0 AV Cusp Separation MM 1.0 cm DOPPLER AV Peak Velocity 156.0 cm/s AV Peak Gradient 9.7 mmHg LVOT Peak Velocity 108.0 cm/s LVOT Peak Gradient 4.7 mmHg AV Area Cont Eq pk 1.6 cm Mitral E Point Velocity 82.2 cm/s Mitral A Point Velocity 64.6 cm/s Mitral E to A Ratio 1.3 LV E' Lateral Velocity 6.4 cm/s Mitral E to LV E' Lateral Ratio 12.8 LV E' Septal Velocity 7.9 cm/s Mitral E to LV E' Septal Ratio 10.4 TV Peak Velocity 205.0 cm/s TR Peak Velocity 220.0 cm/s TR Peak Gradient 19.4 mmHg Right Atrial Pressure 10.0 mmHg Pulmonary Artery Systolic Pressu 29.4 mmHg Right Ventricular Systolic Press 29.4 mmHg PV Peak Velocity 129.0 cm/s PV Peak Gradient 6.7 mmHg FINDINGS LEFT VENTRICLE Normal left ventricular size. Mild concentric left ventricular hypertrophy. The left ventricular systolic function is normal with an estimated ejection fraction in the range of 60-65%. No regional wall motion abnormalities are present. RIGHT VENTRICLE Normal right ventricular size and systolic function. LEFT ATRIUM The left atrial size is normal. RIGHT ATRIUM The right atrial size is normal. ATRIAL SEPTUM Normal atrial septal thickness without atrial level shunting by limited color doppler interrogation. AORTA The aortic root and proximal ascending aorta are normal in size on limited imaging. MITRAL VALVE Structurally normal mitral valve. No mitral valve stenosis or regurgitation. AORTIC VALVE Trileaflet aortic valve. No aortic valve stenosis or regurgitation. TRICUSPID VALVE There is trace tricuspid valve regurgitation. PULMONARY VALVE No pulmonary valve regurgitation or stenosis. VESSELS The inferior vena cava is normal in size. PERICARDIUM No pericardial effusion. Shaka Reed MD (Electronically Signed) Final Date:17 February 2018 11:24
== END 2018-02-17 17:08 | disposition home or self-care (01) ==
LOC: NEDAMB 10:54 → NEDA 10:54 → NEPFCDU 15:00 → HCIS 02-16 11:26
PROVIDERS: ADMIT Family Medicine; ATTEND Family Medicine